=== PATIENT | male | born 1930 | race Caucasian/White ===

== ENCOUNTER 2017-01-28 09:09 | Outpatient (CLI) | payer MEDICARE ==
--- NOTE | 2017-01-28 11:21 | CT ---
BRAIN CT WITHOUT IV CONTRAST: History: Headaches. Back pain. Comparison: Brain MRI 10-17-08. FINDINGS: Stable large area of encephalomalacia, evidence for left middle cerebral artery distribution infarct. No focal mass or midline shift. No intra or extraaxial hemorrhage. 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 Chronic white matter ischemic change, stable appearing. No mass or bleed or other acute process. POS: ELYSE
--- NOTE | 2017-01-28 13:03 | MRI ---
MRI LUMBAR SPINE NONCONTRAST: DATE: 01-28-17 HISTORY: 86-year-old male with M54.16, lumbar radiculopathy, and M54.5 acute low back pain. COMPARISON: No prior MRIs of the lumbar spine. CT of abdomen and pelvis of 03-09-06. FINDINGS: The previous abdominal CT of 03-09-06 showed an approximately 5 cm left renal cyst. That has probably grown in size and now distorts the left renal parenchyma to a greater degree than previously. Only a small portion of it is included in the axial field of view on the current MRI. There are also multipl e, much smaller, bilateral parapelvic renal cysts. That previous abdominal and pelvic CT demonstrates five non-rib bearing lumbar type vertebrae. On the current MRI, the vertebral body heights are maintained. There is a mild right-convex lateral curvatu re of the lumbar spine with apex of curvature at approximately L2. No major spondylolisthesis. There is asymmetrically high grade right sided disc space narrowing along the left, concave side of the cur vature at L1-2 and L2-3, and along the right, concave side of the counter curvature at L4-5 and L5-S1 , which contributes to the right sided neural foraminal stenosis at those lower levels. There are Mod ic type I degenerative endplate marrow changes with small endplate defects, at L2-3. No other areas o f significant bone marrow signal abnormality. The findings by individual levels are as follows: T11-12: Focal small left lateral disc herniation. This has the potential to impinge on the left exiti ng T11 nerve root. There is mild left neural foraminal stenosis. No right neural foraminal stenosis. The degree of central spinal canal stenosis is mild. The disc herniation does not contact the spinal cord. T12-L1: Shallow, broad based right paracentral disc protrusion. No significant central stenosis or si gnificant neural foraminal stenosis. L1-2: The conus medullaris terminates at this level. Diffuse disc bulge. Mild ligamentum flavum thick ening. Mild degenerative facet changes. Mild to moderate central spinal canal stenosis. Moderate thec al sac stenosis. Mild to moderate bilateral neural foraminal stenosis. L2-3: Diffuse disc bulge. Mild bilateral neural foraminal stenosis. Distortion of the spinal canal an d thecal sac by the lateral curvature and disc bulge. Mild ligamentum flavum thickening. Moderate spi nal canal and thecal sac stenosis, especially on the left side. Significant left lateral recess steno sis. L3-4: Midline laminectomy defect. No central stenosis. Moderate right neural foraminal stenosis. Anson le or no left neural foraminal stenosis. Asymmetrical right moderate degenerative facet changes. L4-5: Midline laminectomy defect. No central spinal canal stenosis. Bilateral moderate degenerative f acet changes bilaterally, right worse than left. Severe right neural foraminal stenosis with displace ment and deformation of exiting right L4 nerve root, and obliteration of neural foraminal fat signal. Mild to moderate left neural foraminal stenosis. L5-S1: Midline laminectomy defect. No central stenosis. Moderate bilateral neural foraminal stenosis, right worse than left. IMPRESSION: 1. Lumbar spondylosis: multilevel degenerative disc disease, facet osteoarthrosis, and lateral curvat ure. 2. Status post laminectomies from L3-4 through L5-S1. 3. Severe right neural foraminal stenosis at L4-5. 4. Moderate central spinal canal stenosis and severe left lateral recess stenosis, at L2-3. 5. Interval growth of now large left renal cyst, distorting the left renal parenchyma. PRINCESS Henley POS: ELYSE
== END 2017-01-28 09:10 | disposition home or self-care (01) ==
LOC: CT 09:09
PROVIDERS: ATTEND Neurological Surgery
DX: M54.16 Radiculopathy, lumbar region (principal); M54.5 Low back pain; R51 Headache; G93.89 Other specified disorders of brain; M47.816 Spondylosis without myelopathy or radiculopathy, lumbar region; M48.061 Spinal stenosis, lumbar region without neurogenic claudication; N28.1 Cyst of kidney, acquired; Z98.890 Other specified postprocedural states
CPT/HCPCS: 70450; 72148

== ENCOUNTER 2017-06-30 15:22 | Inpatient (IN) | payer MEDICARE ==
[2017-06-30 16:06] LABS: #Lymphocytes 1.3 thou/uL (1.20-3.40); #Monocytes 0.5 thou/uL (0.11-0.59); #Neutrophils 5.4 thou/uL (1.40-6.50); %Basophils 0.4 % (0.0-1.0); %Eosinophils 0.6 % (0.0-10.0); %Lymphocytes 17.6 % (21.0-51.0); %Neutrophils 74.4 % (42.0-75.0); Hemoglobin 10.4 g/dL (14.0-18.0); Mean Corpuscular HGB CONC 32.6 g/dL (32.0-36.0); Mean Corpuscular Hemoglobin 31.8 pg (27.0-31.0); Mean Corpuscular Volume 97.5 fl (80.0-94.0); Mean Platelet Volume 8.5 fL (7.4-10.4); Platelet Count 254 thou/uL (130-400); RBC Distribution Width 15.9 % (11.5-14.5); Red Blood Cell (RBC) Count 3.27 mill/uL (4.70-6.10); White Blood Cell (WBC) Count 7.3 thou/uL (4.8-10.8)
[2017-06-30 16:08] LABS: INR-International Normal Ratio 1.3; Prothrombin Time 16.7 SEC (12.0-14.7)
--- NOTE | 2017-06-30 16:25 | PDOC.FPRHP ---
- History of Present Illness Chief Complaint: jaundice History of Present Illness: John Miller is an 86 year old male with a pmh of HTN, HLD, BPH, stroke, who presents as direct admit from Dr. Royal's office. Patient was with his for an appointment for her at Dr. Holden's office yesterday and she noticed how yellow his skin was. Dr. Holden ordered a CBC, CMP, Direct/Total bili. Patient was seen in Dr. Royal's office and his labs were remarkable for Total bili of 25.6, direct bili of 10.9, AST of 278, ALT 140, Alk Phos of 1623, Cr of 3.03. 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 He is normally A&O X4. His daughter, who is a nurse, states that he seems to be slightly below his baseline. She has noticed that his skin has looked slightly more yellow for about the last two weeks, but it has not been this obvious as it is now, which she attributes to the lighting in the house. He denies any complaints or pain. He and his daughter agree that he has had decreased PO intake and decreased appetite for several months. He also has had weight loss during that time. He denies abdominal pain/n/v any time during or after eating. No history of cholecystectomy. Patient denies any recent illnesses. ED Course: Direct admit from Dr. Royal's office - Allergies/Adverse Reactions Allergies Allergy/AdvReac Type Severity Reaction Status Date / Time codeine Allergy Verified 06/30/17 16:47 NSAIDS (Non-Steroidal Allergy Verified 06/30/17 16:47 Anti-Inflamma Penicillins Allergy Verified 06/30/17 16:47 Sulfa (Sulfonamide Allergy Verified 06/30/17 16:47 Antibiotics) - Home Medications Medication Instructions Recorded Confirmed Type Amlodipine Besylate [amLODIPine 2.5 mg PO DAILY 06/30/17 06/30/17 History Besylate] Aspirin [Jesusita Chewable] 81 mg PO DAILY 06/30/17 06/30/17 History Atorvastatin Calcium [Lipitor] 20 mg PO HS 06/30/17 06/30/17 History Ergocalciferol (Vitamin D2) 50,000 unit PO Q7DAYS 06/30/17 06/30/17 History [Vitamin D2] Folic Acid [Folvite] 1 mg PO DAILY 06/30/17 06/30/17 History HYDROcodone/Acetaminophen [Morrow 1 each PO QID PRN 06/30/17 06/30/17 History 7.5-325 Tablet] Lisinopril 2.5 mg PO DAILY 06/30/17 06/30/17 History Loratadine [Claritin] 10 mg PO DAILY 06/30/17 06/30/17 History Nitroglycerin [Nitrostat] 0.4 mg SL Q5MIN PRN 06/30/17 06/30/17 History Pantoprazole [Protonix] 40 mg PO DAILY 06/30/17 06/30/17 History Polyethylene Glycol 3350 [Miralax] 17 gm PO DAILY 06/30/17 06/30/17 History Tamsulosin HCl [Flomax] 0.4 mg PO HS 06/30/17 06/30/17 History Topiramate 100 mg PO BID 06/30/17 06/30/17 History - History PMHx: HTN, HLD, CKD stage 3, BPH, hx of stroke, chronic back pain PSHx: Carotid Endarterectomy after stroke, Back surgery FHx: noncontributory Social: Lives with at home. No history of drug use, alcohol use, iv drug use, smoking. Worked in [employer] for many years, [employer] for short time when he was young. Denies blood transfusions in past. - Review of Systems General: reports: weight/appetite/sleep changes. denies: fever/chills, night sweats, fatigue Eyes: denies: eye pain, vision changes ENT: denies: nasal congestion, rhinorrhea Respiratory: denies: cough, congestion, shortness of breath, exercise intolerance Cardiovascular: denies: chest pain, palpitation, edema, paroxysmal nocturnal dyspnea, orthopnea Gastrointestinal: reports: constipation. denies: nausea, vomiting, diarrhea, abdominal pain, GI bleeding Genitourinary: denies: incontinence, dysuria, polyuria, discharge Skin: denies: rashes, lesions, jaundice, itching Musculoskeletal: reports: pain, arthritis/arthralgias. denies: tenderness, stiffness, swelling Neurological: denies: numbness, syncope, seizure, weakness Psychological: denies: anxiety, depression - Vital signs BP: 128/61 HR: 61 RR: 18 Tmax: 97.6 Pox: 100% on RA - Physical Exam Constitutional: NAD, awake, alert and oriented, well developed HEENT: normocephalic and atraumatic, PERRLA, EOMI, grossly normal vision, TM's clear and intact, grossly normal hearing, normal nasal mucosa, MMM -HEENT: scleral icterus, yellow mucous membranes, A&OX3 Neck: supple, FROM, trachea midline, no LAD, no JVD Chest: no-tender to palpation, no lesions Heart: RRR, normal S1/S2, no murmurs/rubs/gallops, pulses present Lungs: CTAB, no respiratory distress, good air movement, no rales/rhonchi Abdomen: soft, non-tender, bowel sounds present, no masses/distention Musculoskeletal: normal structure, normal tone, ROM grossly normal Neurological: no focal deficit, CN II-XII intact, normal sensation Skin: no rash/lesions, good turgor, capillary refill <2 seconds -Skin: diffuse jaundice over whole body Heme/Lymphatic: no unusual bruising or bleeding, no purpura -Heme/Lymphatic: small hemangiomas on chest Psychiatric: normal mood and affect, good judgment and insight, intact recent and remote memory FMR H&P: Results - Labs Result Diagrams: 06/30/17 15:54 06/30/17 15:54 Lab results: WBC 7.3 thou/uL (4.8-10.8) 06/30/17 15:54 Hgb 10.4 g/dL (14.0-18.0) L 06/30/17 15:54 Hct 31.9 % (42.0-52.0) L 06/30/17 15:54 MCV 97.5 fl (80.0-94.0) H 06/30/17 15:54 Plt Count 254 thou/uL (130-400) 06/30/17 15:54 Neutrophils % 74.4 % (42.0-75.0) 06/30/17 15:54 FMR H&P: A/P - Problem List (1) Acute hepatic failure Current Visit: Yes Status: Acute (2) Hepatic encephalopathy Current Visit: Yes Status: Acute Code(s): K72.90 - HEPATIC FAILURE, UNSPECIFIED WITHOUT COMA (3) Hyperbilirubinemia Current Visit: Yes Status: Acute Code(s): E80.6 - OTHER DISORDERS OF BILIRUBIN METABOLISM (4) Acute kidney injury superimposed on CKD Current Visit: Yes Status: Acute Code(s): N17.9 - ACUTE KIDNEY FAILURE, UNSPECIFIED; N18.9 - CHRONIC KIDNEY DISEASE, UNSPECIFIED (5) HTN (hypertension) Current Visit: Yes Status: Acute Code(s): I10 - ESSENTIAL (PRIMARY) HYPERTENSION (6) HLD (hyperlipidemia) Current Visit: Yes Status: Acute Code(s): E78.5 - HYPERLIPIDEMIA, UNSPECIFIED (7) Normocytic anemia Current Visit: Yes Status: Acute Code(s): D64.9 - ANEMIA, UNSPECIFIED (8) BPH (benign prostatic hyperplasia) Current Visit: Yes Status: Acute Code(s): N40.0 - BENIGN PROSTATIC HYPERPLASIA WITHOUT LOWER URINRY TRACT SYMP - Plan (1) Acute Hepatic Failure: - Likely hepatobiliary in etiology - No complaints, hx significant for decreased appetite and weight loss - No hx of liver disease, alcohol or iv drug use, or transfusions - No recent illnesses - MELD score of 33 - Ammonia was >925 - Ordered RUQ US - Starting lactulose (2) Hepatic Encephalopathy - Pt in not at his baseline mental status per daughter - A&O X3 currently - Difficult to distinguish from residual memory and speech impairments from previous stroke - Ammonia is greater than 925 - Starting lactulose - continue to monitor closely overnight (3) Hyperbilirubinemia: - Alk phos is 1623, Total bili 25.6, direct of 10.3 - Ordered RUQ US (4) NATHAN on CKD stage 3: - IVFs, NS at 130 ml/hr - possibly 2/2 hypovolemia - Check CMP in AM (5) HTN - Continue to monitor - Start home meds (6) HLD - Home meds (7) BPH - Home meds CODE STATUS: DNR Patient's decision with daughter present in the room, supported decision. Disposition/LOS: Admit to Tele, anticipated stay > 48 hours FMR H&P: Upper Level - Pertinent history 86 yr old male with PMH hx of HTN, HLD and hx of CVA is sent over by PCP for direct admission secondary to abnormal lab elevation after a finding of jaundice. He has no complaints. Daughter first noticed the yellow appearance 2 weeks ago. Denies abdominal pain, nausea, vomiting. He has had some constipation. Reports weight loss over last few years and loss of appetite recently. He denies hx of alcohol use. No drug use. No hx of hepatitis. - Pertinent findings PE: Gen: NAD, outside of jaundice he is normal in appearance. ENT: scleral icteris cardiac: RRR, NO m/r/g lungs: CTAB Abdomen: hypoactive BS, nontender to palpation, no masses palpated, no hepatosplenomegaly Skin: severe jaundice, no caput medusa, no spider angioma EXT: 1+ dorsalis pedis - Plan Date/Time: 06/30/17 2147 I, [Kendal Limon], have evaluated this patient and agree with findings/plan as outlined by financial internship resident. Pertinent changes/additions are listed here. 1. Hyperbilirubinemia -etiology unknown however certainly consider obstructive type process including malignancy -will obtain Abdominal sono -trend CMP, amonia -consult GI in AM 2. acute liver failure - see above 3. hepatic encephalopathy -will start lactulose and titrate to BM of 3 x daily 4. acute on chronic CKD - will give fluids and cont to monitor BMP 5. HTN - cont home meds 6. HLD -holding statin at this time 7. normocytic anemia - check ferritin, iron, tibc - check B12, folic acid 8. BPH - start home meds DVT ppx with heparin regular diet and NPO after midnight.
[2017-06-30 16:31] LABS: Bilirubin, Total 25.6 mg/dL (0.2-1.2)
[2017-06-30 16:33] LABS: ALT (SGPT) 128 U/L (8-55); AST (SGOT) 247 U/L (5-34); Albumin 2.9 g/dL (3.4-4.8); Alkaline Phosphatase 1549 U/L (40-150); Anion Gap 16 mmol/L (10-20); BUN (Urea Nitrogen) 41 mg/dL (8.4-25.7); Calc. Creatinine Clearance 0 mL/min (70-130); Calcium 9.5 mg/dL (7.8-10.44); Carbon Dioxide 17 mmol/L (23-31); Chloride 105 mmol/L (98-107); Estimated GFR-MDRD 19; Gamma GT (GGT) 536 U/L (12-64); Globulin 3.8 g/dL (2.4-3.5); Glucose 116 mg/dL (83-110); Potassium 3.9 mmol/L (3.5-5.1); Protein, Total 6.7 g/dL (5.8-8.1); Sodium 134 mmol/L (136-145)
[2017-06-30 16:46] LABS: HBCM Index 0.08 S/CO (0-0.79); HBSAg Index 0.22 S/CO (0-0.99); Hep A IgM AB Non-Reactive (NonReactive); Hep A IgM S/CO 0.09 S/CO (0-0.79); Hep B Surf Ag Non-Reactive S/CO (NonReactive); Hep C IgG Ab Non-Reactive (NonReactive); Hep C Index 0.09 S/CO (0-0.79); Hepatitis B Core IGM Abs Non-Reactive (NonReactive)
--- NOTE | 2017-06-30 17:27 | PDOC.EVN ---
Attending Addendum - Attending Addendum Date/Time: 06/30/17 0366 I personally evaluated the patient and discussed the management with Dr. Hernández/ Ashly. I agree with the History, Examination, Assessment and Plan documented in the H& P with any addition or exceptions noted below. Patient is 86 yo M with remote history of CVA with residual memory deficits who presents today as direct admit from his PCP. Per family and PCP, patient was noted to be extremely jaundiced yesterday at one of his 's appointments, and so labs were checked and he was scheduled for follow up today in clinic. Labs revealed a Tbili of greater than 25, AST/ALT elevations, and highly elevated alk phos. Per the patient, he overall denies any complaints other than mildly decreased appetite over the last few weeks. His daughter reports to me that she noticed him looking somewhat "yellow" about 2 weeks ago. On exam today , he is extensively jaundiced, RRR, CTAB, and abdomen nontender. He does have scattered bruising. Labs today show continued elevation of Alk Phos, AST, ALT, TBili. His ammonia level is greater than the limits of the test (925). Albumin 2.9, INR 1.3. His Creatinine is 3.2, and his PCP reports baseline of around 2. Imaging studies are pending. MELD score currently 33. Patient to be admitted to telemetry for 1. Acute versus Chronic Liver failure likely 2/2 biliary obstruction of unknown etiology. 2. Hepatic encephalopathy. 3. NATHAN on CKD. 4. History of CVA. Primary concern given the patient's current lab studies would be malignancy/mass causing biliary obstruction leading to liver dysfunction. His creatinine would not qualify for a contrast enhanced CT scan, so we will obtain a STAT RUQ U/S to evaluate liver architecture, bile duct , portal vein flow, and hopefully pancreatic head. If this testing is negative or equivocal, would obtain non contrast CT overnight. He will be started on fluid hydration as well as Lactulose therapy to try and make a dent in his encephalopathy, though this effect is likely to be minor. Will need GI consult, though there does not appear to be a reason currently for emergent consultation. Further management and specialist consults depending on resulting labs and imaging studies overnight. Patient is a DNR.
[2017-06-30] MEDS ORDERED: Nitroglycerin 0.4 MG TAB (25 Tab Bottle) SL PRN (17:33)
[2017-06-30] MEDS: Sodium Chloride 0.9% 1,000 ML IV SCH (17:45)
[2017-06-30 18:05] LABS: Acetaminophen Less than 6.0 mcg/mL (10.0-30.0)
[2017-06-30] MEDS: Tamsulosin HCl 0.4 MG CAP PO SCH (20:25)
[2017-07-01 05:23] LABS: #Eosinphils 0.1 thou/uL (0.0-0.7); #Lymphocytes 1.2 thou/uL (1.20-3.40); #Monocytes 0.5 thou/uL (0.11-0.59); #Neutrophils 3.6 thou/uL (1.40-6.50); %Basophils 0.5 % (0.0-1.0); %Eosinophils 1.4 % (0.0-10.0); %Lymphocytes 21.7 % (21.0-51.0); %Monocytes 8.8 % (0.0-10.0); %Neutrophils 67.6 % (42.0-75.0); Hemoglobin 8.9 g/dL (14.0-18.0); Mean Corpuscular HGB CONC 33.1 g/dL (32.0-36.0); Mean Corpuscular Hemoglobin 32.6 pg (27.0-31.0); Mean Corpuscular Volume 98.2 fl (80.0-94.0); Mean Platelet Volume 8.4 fL (7.4-10.4); Platelet Count 231 thou/uL (130-400); RBC Distribution Width 15.7 % (11.5-14.5); Red Blood Cell (RBC) Count 2.73 mill/uL (4.70-6.10); White Blood Cell (WBC) Count 5.3 thou/uL (4.8-10.8)
[2017-07-01 05:50] LABS: ALT (SGPT) 103 U/L (8-55); AST (SGOT) 207 U/L (5-34); Albumin 2.4 g/dL (3.4-4.8); Alkaline Phosphatase 1304 U/L (40-150); Anion Gap 13 mmol/L (10-20); BUN (Urea Nitrogen) 37 mg/dL (8.4-25.7); Bilirubin, Total 20.8 mg/dL (0.2-1.2); Calc. Creatinine Clearance 23 mL/min (70-130); Calcium 8.4 mg/dL (7.8-10.44); Carbon Dioxide 17 mmol/L (23-31); Chloride 107 mmol/L (98-107); Estimated GFR-MDRD 23; Glucose 105 mg/dL (83-110); Potassium 3.8 mmol/L (3.5-5.1); Protein, Total 5.4 g/dL (5.8-8.1); Sodium 133 mmol/L (136-145)
[2017-07-01] MEDS: Sodium Chloride 0.9% 1,000 ML IV SCH ×3 (06:51→17:33)
--- NOTE | 2017-07-01 06:56 | PDOC.FM ---
- Subjective Subjective: Mr. Miller seen at bedside this morning. He denies any problems. There were no acute events overnight. He was not able to get his RUQ US done last night because he had eaten. Radiology recommended getting CT scan. CT scan done around midnight. Enlarged gallbladder, renal stone present. Official read pending. Patient denies any fever, chills, chest pain, dyspnea. - Objective MAR Reviewed: Yes Vital Signs & Weight: Vital Signs (12 hours) Temp Pulse Resp BP Pulse Ox 07/01/17 06:06 98.2 F 63 16 129/66 98 07/01/17 03:21 97.6 F 72 18 154/73 H 100 06/30/17 20:00 98.2 F 82 18 100 06/30/17 19:21 98.2 F 82 18 139/63 100 Weight Weight 76.374 kg I&O: 06/29/17 06/30/17 07/01/17 06:59 06:59 06:59 Intake Total 902 Output Total 400 Balance 502 Result Diagrams: 07/01/17 04:03 07/01/17 04:03 <Axel Hernández - Last Filed: 07/01/17 06:50> - Objective Vital Signs & Weight: Vital Signs (12 hours) Temp Pulse Resp BP Pulse Ox 07/01/17 08:00 97.9 F 57 L 16 100 07/01/17 07:48 97.9 F 57 L 16 118/59 L 100 07/01/17 06:06 98.2 F 63 16 129/66 98 07/01/17 03:21 97.6 F 72 18 154/73 H 100 Weight Admit Weight 73.346 kg Weight 76.374 kg I&O: 06/30/17 07/01/17 07/02/17 06:59 06:59 06:59 Intake Total 902 Output Total 400 Balance 502 Result Diagrams: 07/01/17 04:03 07/01/17 04:03 <Byron Ho - Last Filed: 07/01/17 11:10> Phys Exam - Physical Examination Constitutional: NAD HEENT: PERRLA, moist MMs icteric sclera Neck: no JVD, full ROM Respiratory: no wheezing, no rales, no rhonchi, clear to auscultation bilateral Cardiovascular: RRR, no significant murmur Gastrointestinal: soft, non-tender, no distention Musculoskeletal: no edema, pulses present Neurological: non-focal, normal sensation, moves all 4 limbs Psychiatric: normal affect, A&O x 3 Deviation from normal: diffuse jaundice <EdgarAxel - Last Filed: 07/01/17 06:50> Dx/Plan (1) Acute hepatic failure Status: Acute (2) Hepatic encephalopathy Code(s): K72.90 - HEPATIC FAILURE, UNSPECIFIED WITHOUT COMA Status: Acute (3) Hyperbilirubinemia Code(s): E80.6 - OTHER DISORDERS OF BILIRUBIN METABOLISM Status: Acute (4) Acute kidney injury superimposed on CKD Code(s): N17.9 - ACUTE KIDNEY FAILURE, UNSPECIFIED; N18.9 - CHRONIC KIDNEY DISEASE, UNSPECIFIED Status: Acute (5) HTN (hypertension) Code(s): I10 - ESSENTIAL (PRIMARY) HYPERTENSION Status: Acute (6) HLD (hyperlipidemia) Code(s): E78.5 - HYPERLIPIDEMIA, UNSPECIFIED Status: Acute (7) Normocytic anemia Code(s): D64.9 - ANEMIA, UNSPECIFIED Status: Acute (8) BPH (benign prostatic hyperplasia) Code(s): N40.0 - BENIGN PROSTATIC HYPERPLASIA WITHOUT LOWER URINRY TRACT SYMP Status: Acute - Plan Plan: (1) Acute Hepatic Failure: - Likely hepatobiliary in etiology - No complaints, hx significant for decreased appetite and weight loss - No hx of liver disease, alcohol or iv drug use, or transfusions - No recent illnesses - MELD score of 33 on admission, MELD now 30, giving him a 52.6% 3 month mortality risk - Ammonia was >925 - RUQ US not performed yesterday due to patient having eaten - Radiology recommended CT abd, which was performed around midnight, official read pending - CT read will determine further plan - Discontinued lactulose (2) Hepatic Encephalopathy - Pt in not at his baseline mental status per daughter - A&O X3 currently - Difficult to distinguish from residual memory and speech impairments from previous stroke - Lab error on initial ammonia level (>925), ammonia is actually 28 - Lactulose discontinued - continue to monitor closely overnight (3) Hyperbilirubinemia: - Initial labs: Alk phos is 1623, Total bili 25.6, direct of 10.3 - CT abdomen - labs are downtrending (4) NATHAN on CKD stage 3: - IVFs, NS at 130 ml/hr - possibly 2/2 hypovolemia - NATHAN is resolving (5) HTN - Continue to monitor - Start home meds (6) HLD - Home meds (7) BPH - Home meds <Axel Hernández - Last Filed: 07/01/17 06:50> Attending Addendum - Attending Addendum Date/Time: 07/01/17 4688 I personally evaluated the patient and discussed the management with Dr. Hernández. I agree with the History, Examination, Assessment and Plan documented above with any addition or exceptions noted below. Patient continues to be at relatively normal mentation despite his liver dysfunction. U/S not yet performed, but CT without contrast (due to kidney injury) shows dilated bile ducts, enlarged gallbladder, and large renal cyst, but no major evidence of obstruction. His labs are mildly improved today with IV hydration. GI has been consulted and awaiting further recs. Will compare renal cyst size to what is documented in his last imaging study from a few years ago and likely consult Urology to r/o malignancy. Patient will still need several more days of hospitalization to work up with obstructive process leading to liver dysfunction. <Byron Ho - Last Filed: 07/01/17 11:10>
[2017-07-01 08:59] LABS: Free T4 (Free Thyroxine) 1.03 ng/dL (0.70-1.48)
--- NOTE | 2017-07-01 09:21 | CT ---
PRELIMINARY REPORT/[facility]/EMERGENTY AFTER-HOURS PROCEDURE EXAM: CT Abdomen and Pelvis Without Intravenous Contrast CLINICAL HISTORY: 86 years old, male; Condition or disease; Liver condition; Other: Acute liver failure; Patient HX: Ac winsome liver failure, hyperbilirubin, wt loss TECHNIQUE: Axial computed tomography images of the abdomen and pelvis without intravenous contrast. Coronal refo rmatted images were created and reviewed. COMPARISON: No relevant prior studies available. FINDINGS: Lung bases: Normal. No mass. No consolidation. Mediastinum: Small-sized hiatal hernia. ABDOMEN: Liver: Normal. Gallbladder and bile ducts: Enlarged gallbladder, with calcified gallstones in the region of the gall bladder neck. No gallbladder wall thickening. Moderate intra-and extrahepatic biliary dilation. No ev idence of choledocholithiasis. Pancreas: Normal. Spleen: Normal. Adrenals: Normal. Kidneys and ureters: Simple left renal cyst measuring approximately 6.7 cm in diameter. Stomach and bowel: Moderate amount of stool within the distal sigmoid colon, without obstruction. PELVIS: Appendix: Appendix is normal. Bladder: Normal. Reproductive: Normal as visualized. ABDOMEN and PELVIS: Intraperitoneal space: Normal. No free air. No significant fluid collection. Bones/joints: Multilevel thoracolumbar spine degenerative changes, with dextroscoliosis of the lumbar spine. L4 and L5 posterior decompressive changes. No dislocation. Soft tissues: Normal. Vasculature: Atherosclerotic calcification of the visualized right coronary artery and distal thoraci c aorta. No abdominal aortic aneurysm. Lymph nodes: Normal. IMPRESSION: 1. Enlarged gallbladder, with calcified gallstones in the region of the gallbladder neck. No gallblad ko wall thickening. Moderate intra-and extrahepatic biliary dilation. No evidence of choledocholithi asis. Findings most compatible with acute cholecystitis. Biliary dilation may be related to previous choled ocholithiasis or possibly occult obstruction. Recommend further evaluation. 2. Incidental/non-acute findings are described above. Thank you for allowing us to participate in the care of your patient. Dictated and Authenticated by: Reji Young MD 07/01/2017 1:10 AM Central Time ([place] & [place]) FINAL REPORT EMERGENCY AFTER HOURS CT ABDOMEN AND PELVIS WITHOUT IV CONTRAST: Date: 07/01/17 HISTORY: Acute liver failure, hyperbilirubinemia, weight loss. COMPARISON: 03/09/06. IMPRESSION: 1. Intra and extrahepatic biliary ductal dilatation of uncertain etiology based on this noncontraste d CT scan exam. 2. Gallbladder distention with evidence of cholelithiasis. 3. Large exophytic left renal cyst. 4. Nonobstructing approximately 3.0 mm left renal calculus. 5. Small hiatal hernia. 6. No CT evidence of appendicitis. 7. Degenerative changes in the spine with postsurgical changes lower lumbar spine. 8. GI consultation for further evaluation of the intra and extrahepatic biliary dilatation is recomm ended. Depending on clinical concern, postcontrast CT scan of the abdomen may be helpful for further evaluation. Findings are in agreement with the preliminary report by Karla. POS: ELYSE
[2017-07-01 11:44] LABS: INR-International Normal Ratio 1.3; PTT 41.6 SEC (22.9-36.1); Prothrombin Time 16.9 SEC (12.0-14.7)
--- NOTE | 2017-07-01 12:48 | ULT ---
RIGHT UPPER QUADRANT ULTRASOUND: History: Enlarged gallbladder with dilated ducts. Jaundice. Technique: Multiplanar grayscale and color doppler images were obtained in a right upper quadrant abd ominal ultrasound. FINDINGS: The liver is increased in echogenicity without focal lesions. There appear to be small echogenic shad owing stones within the gallbladder. The common bile duct is enlarged measuring 1.4 cm. There is appa rent gallbladder wall thickening. The pancreas is not well visualized. The right kidney is normal in echogenicity without hydronephrosi s or calculus and measures 10.3 cm in length. IMPRESSION: 1. Cholelithiasis. 2. Dilated common bile duct. No obvious calcification is seen in the common bile duct. MRCP/MRI of th e abdomen is recommended for more definitive evaluation. POS: ELYSE
[2017-07-01] MEDS ORDERED: Fentanyl 100 MCG/2 ML VIAL ONE ×2 (13:15)
[2017-07-01] MEDS ORDERED: Iothalamate Meglumine 60% 50 ML VIAL FS ONE (13:26)
[2017-07-01] MEDS ORDERED: Indomethacin 50 MG SUPP ONE ×2 (13:27→13:28)
[2017-07-01] MEDS ORDERED: PHENYLEPHRINE-NS 100 MCG/ML 10 ML SYRINGE ONE (14:37)
[2017-07-01] MEDS ORDERED: Glycopyrrolate 0.2 MG/ML 5 ML SYRINGE ONE (14:37)
[2017-07-01] MEDS ORDERED: Ondansetron HCl/PF 4 MG/2 ML Vial ONE ×2 (14:37→14:41)
[2017-07-01] MEDS ORDERED: ePHEDrine/0.9% NaCl/PF SYRINGE 50 mg/10 ml ONE (14:37)
[2017-07-01] MEDS ORDERED: Lidocaine 1% PF 5 ML VIAL ONE (14:37)
[2017-07-01] MEDS ORDERED: PROPOFOL 200 MG/20 ML VIAL ONE (14:37)
[2017-07-01] MEDS ORDERED: Dexamethasone 20 MG/5 ML VIAL ONE (14:37)
[2017-07-01] MEDS: Amlodipine 5 MG TAB PO SCH (14:38)
[2017-07-01] MEDS: Loratadine 10 MG TAB PO SCH (14:39)
--- NOTE | 2017-07-01 16:46 | RAD ---
ERCP 07/01/17 COMPARISON: Gallbladder ultrasound 07/01/17. HISTORY: Cholelithiasis. FINDINGS/IMPRESSION: Multiple limited intraoperative fluoroscopic views were performed and were taken in an ERCP. The limi david fluoroscopic images provided show severe enlargement of the common bile duct. There is contrast s een within the pancreatic duct which is normal in caliber. There is mild central intrahepatic biliary dilatation. The contrast does not extend into the duodenum and there is an abrupt tapering of the co mmon bile duct in the region of the ampulla Vater. A small amount of contrast is seen extending towar ds the duodenum. The latter images show a stent placed over this area which could represent an of str icture or could represent a mass in the region of the ampulla Vater. POS: ELYSE
[2017-07-01 17:08] LABS: EliA Vaculitis New Method **** NEW METHOD ****; Mitochondrial Ab 0.8 U/mL (<4 Negative)
--- NOTE | 2017-07-01 17:22 | OP ---
DATE OF PROCEDURE: 07/01/2017 PROCEDURE: Endoscopic retrograde cholangiopancreatography with sphincterotomy, cytology brushing, and biliary stent placement. PHYSICIAN: Kishan Silva M.D. PREMEDICATIONS: Given by Anesthesiology Department. PREPROCEDURE DIAGNOSIS: Obstructive jaundice. POSTPROCEDURE DIAGNOSES: 1. 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 3. Dilated common bile duct to 1.5 cm. 4. Mildly dilated intrahepatic biliary tree. 5. No obvious choledocholithiasis. PROCEDURE IN DETAIL: A written consent was obtained prior to procedure. After adequate sedation, the forward-viewing endoscope was advanced down the stomach to the pylorus into the duodenum. The ampulla was visualized. There is 2 periampullary diverticula noted. The ampulla appears to be very bulging, measuring approximately 2 cm in width. Selective cannulation was performed using a sphincterotome. Injection of contrast showed a normal-appearing pancreatic duct. Despite multiple attempts, free cannulation of the common bile duct was not achieved. A small precut was made at the 12 o'clock position. The sphincterotome was then able to pass into the bile duct with a guidewire. Injection of the bile duct showed a uniformly dilated bile duct, measuring approximately 15 mm in diameter. No obvious filling defect was seen. There appears to be a mild dilatation of the intrahepatic biliary tree. Contrast was opacified to the distal portion of the bile duct, revealing a 1 cm tight stricture through the ampulla. The ampulla was further cut using the sphincterotome. Exchange was made for the cytology brush. The ampullary stricture was then brushed with cytology slide fixated and sent off. Next, a 5 cm, 11.5-Syriac biliary stent was then placed across the guide apparatus successfully by passing the biliary stricture. There was evacuation of contrast and bile from the bile duct. Injection of contrast was made through the stent to ensure proper placement. There is good opacification revealing good biliary stent placement. The instrument was then fully removed. The patient tolerated the procedure well. ASSESSMENT: 1. 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 2. Dilated common bile duct to 1.5 cm without any intraductal filling defect or any evidence of choledocholithiasis. RECOMMENDATIONS: 1. Await cytology brushing result. 2. If conclusive, patient may need outpatient endoscopic ultrasound. 3. Check CA 19-9, AFP and CEA. MTDD
[2017-07-01] MEDS ORDERED: Dextrose 5% in Water 1,000 ML IV PRN (18:36)
[2017-07-01] MEDS ORDERED: Dextrose 50% Abboject 50 ML SYRINGE SLOW IVP PRN (18:36)
[2017-07-01] MEDS ORDERED: HumaLOG 300 UNITS/3 ML VIAL SC PRN (18:36)
[2017-07-01] MEDS ORDERED: Pantoprazole 40 MG VIAL IVP SCH (21:00)
[2017-07-01] MEDS: Tamsulosin HCl 0.4 MG CAP PO SCH (21:22)
[2017-07-02] MEDS: Sodium Chloride 0.9% 1,000 ML IV SCH ×3 (00:22→16:26)
[2017-07-02 04:57] LABS: INR-International Normal Ratio 1.4; Prothrombin Time 17.2 SEC (12.0-14.7)
[2017-07-02 04:58] LABS: PTT 39.4 SEC (22.9-36.1)
[2017-07-02 05:25] LABS: ALT (SGPT) 93 U/L (8-55); AST (SGOT) 163 U/L (5-34); Albumin 2.1 g/dL (3.4-4.8); Alkaline Phosphatase 1155 U/L (40-150); Anion Gap 11 mmol/L (10-20); BUN (Urea Nitrogen) 34 mg/dL (8.4-25.7); Bilirubin, Total 17.8 mg/dL (0.2-1.2); Calc. Creatinine Clearance 24 mL/min (70-130); Calcium 8.3 mg/dL (7.8-10.44); Carbon Dioxide 16 mmol/L (23-31); Chloride 109 mmol/L (98-107); Estimated GFR-MDRD 25; Globulin 2.9 g/dL (2.4-3.5); Glucose 127 mg/dL (83-110); Potassium 4.1 mmol/L (3.5-5.1); Sodium 132 mmol/L (136-145)
[2017-07-02 05:30] LABS: #Lymphocytes 0.7 thou/uL (1.20-3.40); #Monocytes 0.3 thou/uL (0.11-0.59); #Neutrophils 3.8 thou/uL (1.40-6.50); %Eosinophils 0.4 % (0.0-10.0); %Lymphocytes 14.4 % (21.0-51.0); %Monocytes 6.4 % (0.0-10.0); %Neutrophils 78.8 % (42.0-75.0); Hemoglobin 8.7 g/dL (14.0-18.0); Mean Corpuscular HGB CONC 33.6 g/dL (32.0-36.0); Mean Corpuscular Hemoglobin 33.1 pg (27.0-31.0); Mean Corpuscular Volume 98.4 fl (80.0-94.0); Mean Platelet Volume 8.3 fL (7.4-10.4); Platelet Count 238 thou/uL (130-400); RBC Distribution Width 15.8 % (11.5-14.5); Red Blood Cell (RBC) Count 2.62 mill/uL (4.70-6.10); White Blood Cell (WBC) Count 4.9 thou/uL (4.8-10.8)
--- NOTE | 2017-07-02 06:57 | PDOC.FM ---
- Subjective Subjective: John Miller is seen at bedside this morning. He denies any issues overnight and any post-operative issues. His questions regarding the surgery and what was causing this were answered. He denies any fever, chills, chest pain, dyspnea, n/v/d/abd pain. - Objective MAR Reviewed: Yes Vital Signs & Weight: Vital Signs (12 hours) Temp Pulse Resp BP Pulse Ox 07/02/17 04:25 98.8 F 77 20 154/65 H 97 07/02/17 04:00 97.6 F 65 18 95/58 L 94 L 07/02/17 00:00 97.8 F 48 L 20 126/60 98 07/01/17 20:00 97.6 F 45 L 16 98 Weight Admit Weight 73.346 kg Weight 78.245 kg I&O: 06/30/17 07/01/17 07/02/17 06:59 06:59 06:59 Intake Total 902 Output Total 400 Balance 502 Result Diagrams: 07/02/17 04:28 07/02/17 04:28 <Axel Hernández - Last Filed: 07/02/17 06:52> - Objective Vital Signs & Weight: Vital Signs (12 hours) Temp Pulse Resp BP BP Pulse Ox 07/02/17 08:33 53 L 105/59 L 07/02/17 07:20 96.1 F L 53 L 18 105/59 L 100 07/02/17 04:25 98.8 F 77 20 154/65 H 97 07/02/17 04:00 97.6 F 65 18 95/58 L 94 L 07/02/17 00:00 97.8 F 48 L 20 126/60 98 Weight Admit Weight 73.346 kg Weight 78.245 kg I&O: 07/01/17 07/02/17 07/03/17 06:59 06:59 06:59 Intake Total 902 Output Total 400 Balance 502 Result Diagrams: 07/02/17 04:28 07/02/17 04:28 <Byron Ho - Last Filed: 07/02/17 10:40> Phys Exam - Physical Examination Constitutional: NAD HEENT: moist MMs Neck: no JVD, supple, full ROM Respiratory: no wheezing, no rales, no rhonchi, clear to auscultation bilateral Cardiovascular: RRR, no significant murmur, no rub Gastrointestinal: soft, non-tender, no distention Musculoskeletal: no edema, pulses present Neurological: non-focal, moves all 4 limbs Psychiatric: normal affect, A&O x 3 Skin: no rash, normal turgor <Axel Hernández - Last Filed: 07/02/17 06:52> Dx/Plan (1) Acute hepatic failure Status: Acute (2) Hepatic encephalopathy Code(s): K72.90 - HEPATIC FAILURE, UNSPECIFIED WITHOUT COMA Status: Acute (3) Hyperbilirubinemia Code(s): E80.6 - OTHER DISORDERS OF BILIRUBIN METABOLISM Status: Acute (4) Acute kidney injury superimposed on CKD Code(s): N17.9 - ACUTE KIDNEY FAILURE, UNSPECIFIED; N18.9 - CHRONIC KIDNEY DISEASE, UNSPECIFIED Status: Acute (5) HTN (hypertension) Code(s): I10 - ESSENTIAL (PRIMARY) HYPERTENSION Status: Acute (6) HLD (hyperlipidemia) Code(s): E78.5 - HYPERLIPIDEMIA, UNSPECIFIED Status: Acute (7) Normocytic anemia Code(s): D64.9 - ANEMIA, UNSPECIFIED Status: Acute (8) BPH (benign prostatic hyperplasia) Code(s): N40.0 - BENIGN PROSTATIC HYPERPLASIA WITHOUT LOWER URINRY TRACT SYMP Status: Acute - Plan Plan: (1) Acute Hepatic Failure: - Likely hepatobiliary in etiology - No complaints, hx significant for decreased appetite and weight loss - No hx of liver disease, alcohol or iv drug use, or transfusions - No recent illnesses - MELD score of 33 on admission, down to 30, 3 month mortality of 52.6% - Ammonia on admission was 28 - CT abd showed dilated CBD and dilated hepatic biliary ducts - ERCP performed yesterday with sphincterotomy, cytology brushings, and biliary stent placement - Concern for intra-ampullary neoplasm - pending path (2) Hepatic Encephalopathy - Patient appears to be at his baseline - A&O X3 currently - Difficult to distinguish from residual memory and speech impairments from previous stroke - Lab error on initial ammonia level (>925), ammonia is actually 28 - Lactulose discontinued - continue to monitor (3) Hyperbilirubinemia: - Initial labs: Alk phos is 1623, Total bili 25.6, direct of 10.3 - labs are continuing to downtrend (4) NATHAN on CKD stage 3: - IVFs, NS at 130 ml/hr - possibly 2/2 hypovolemia - NATHAN is resolving (5) HTN - Continue to monitor - Start home meds (6) HLD - Home meds (7) BPH - Home meds <Axel Hernández - Last Filed: 07/02/17 06:52> Attending Addendum - Attending Addendum Date/Time: 07/02/17 1038 I personally evaluated the patient and discussed the management with Dr. Hernández. I agree with the History, Examination, Assessment and Plan documented above with any addition or exceptions noted below. Patient is s/p ERCP with sphincterotomy and stent placement. Liver values and bilirubin somewhat improved today. INR with mild prolonging as opposed to yesterday. Patient denies pain complaints. Awaiting pathology. Continue fluid hydration and diet as tolerated. No overt signs of malignancy but definitely concern from GI. Anticipate further improvement as hospitalization continues. <Byron Ho - Last Filed: 07/02/17 10:40>
[2017-07-02] MEDS: Amlodipine 5 MG TAB PO SCH (08:33)
[2017-07-02] MEDS: Loratadine 10 MG TAB PO SCH (08:33)
--- NOTE | 2017-07-02 08:41 | CON ---
DATE OF CONSULTATION: 07/01/2017 REASON: Jaundice. HISTORY: The patient is an 86-year-old male who was admitted to the hospital overnight to the [facility]. The patient's history is questionable and most of the history is obtained from e and the chart. Reportedly, patient was admitted from outpatient clinic after being noted that be was jaundiced. Reportedly, he has not been eating well for the last month and has lost some weig ht, exact amount is not known. He denies having any nausea, vomiting or any abdominal pain. The [facility] e reports noted some darkening of the urine. There is no reported change in the color of his stools. He denies any pruritus. Patient has not had any previous GI problem. He did have history of colon adenomas removed by Dr. Varghese on his last colonoscopy in 2011. PAST MEDICAL HISTORY: 1. Hypertension. 2. Hyperlipidemia. 3. Benign prostatic hypertrophy. 4. 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 MEDICATIONS AT HOME: Include vitamin D 50,000 units every week, folic acid 1 mg every day, Garfield p.r .n. pain, lisinopril 2.5 mg every day, Claritin 10 mg every day, Nitrostat sublingual p.r.n., Protoni x 40 mg every day, MiraLax 17 grams every day, Flomax 0.4 mg every day, and topiramate 100 mg b.i.d. PAST SURGICAL HISTORY: Includes carotid enterectomy and back surgery. SOCIAL HISTORY: Patient lives with his . He denies any alcohol or tobacco usage. FAMILY HISTORY: Not obtainable. REVIEW OF SYSTEMS: Not obtainable, but reportedly he has had reduced appetite over the last month wi th poor intake and weight loss. PHYSICAL EXAMINATION: VITAL SIGNS: Temperature is 97.9, blood pressure 118/59, and pulse of 57. GENERAL: He is alert and conversant. Does not appear in any distress. HEENT: Shows bilateral icteric sclerae. There is some mild temporal wasting. Oropharynx clear. NECK: Supple, no adenopathy. CARDIOVASCULAR: Shows normal S1, S2, regular rate and rhythm. CHEST: Shows breath sounds, no adventitious sounds. ABDOMEN: Soft, no palpable mass. No palpable hepatosplenomegaly. He has active bowel sounds. EXTREMITIES: Shows no edema. SKIN: Diffuse jaundice. LABORATORY DATA: Electrolytes within range, creatinine 2.62, bilirubin 20.8, AST of 207, ALT of 103, alkaline phosphatase 1304, TSH of 0.09. Acetaminophen level is not significantly detectable. Virus hepatitis serology negative. INR is 1.3. WBC is 5.3, hemoglobin 8.9, platelet count of 231,000 wit h MCV of 98. IMAGING DATA: Abdominal pelvic CT with contrast showed intrahepatic and extrahepatic biliary dilatat ion with distended gallbladder without wall thickening and calcified gallstone. Pancreas appeared no rmal. Spleen, adrenal glands, normal kidney with an exophytic cysts on the left. ASSESSMENT: 1. Painless obstructive jaundice with bilirubin over 20. CT scan showed dilatation of both intrahep atic and extrahepatic bile duct. Differential diagnoses include choledocholithiasis, cholangiocarcin lizette, and pancreatic neoplasm despite pancreas appears to be normal on CT. 2. Hypertension. 3. Hyperlipidemia. 4. Status post cerebrovascular accident with impaired memory and mild dysarthria. RECOMMENDATIONS: 1. Proceed with ERCP to further define source of biliary obstruction with possible therapeutic inter vention such as stone removal or stent placement. Indication including risks not limited were discus sed with over the phone and again when she comes in later. 2. Further recommendations to follow, pending ERCP findings.
[2017-07-02] MEDS ORDERED: Calcium Carbonate 500 MG ChewTAB PO PRN (20:51)
[2017-07-02] MEDS ORDERED: Calcium Carbonate 500 MG ChewTAB PO SCH (21:00)
[2017-07-02] MEDS: Tamsulosin HCl 0.4 MG CAP PO SCH (21:47)
[2017-07-03] MEDS: Sodium Chloride 0.9% 1,000 ML IV SCH ×3 (00:50→16:58)
[2017-07-03 05:04] LABS: PTT 38.6 SEC (22.9-36.1)
[2017-07-03 05:09] LABS: INR-International Normal Ratio 1.2
[2017-07-03 05:21] LABS: #Eosinphils 0.2 thou/uL (0.0-0.7); #Monocytes 0.5 thou/uL (0.11-0.59); #Neutrophils 6.1 thou/uL (1.40-6.50); %Basophils 0.3 % (0.0-1.0); %Eosinophils 2.1 % (0.0-10.0); %Lymphocytes 13.1 % (21.0-51.0); %Monocytes 6.3 % (0.0-10.0); %Neutrophils 78.2 % (42.0-75.0); Hemoglobin 8.9 g/dL (14.0-18.0); Mean Corpuscular HGB CONC 33.1 g/dL (32.0-36.0); Mean Corpuscular Hemoglobin 32.5 pg (27.0-31.0); Mean Corpuscular Volume 98.2 fl (80.0-94.0); Platelet Count 225 thou/uL (130-400); RBC Distribution Width 15.7 % (11.5-14.5); Red Blood Cell (RBC) Count 2.74 mill/uL (4.70-6.10); White Blood Cell (WBC) Count 7.9 thou/uL (4.8-10.8)
[2017-07-03 05:25] LABS: ALT (SGPT) 76 U/L (8-55); AST (SGOT) 94 U/L (5-34); Albumin 2.1 g/dL (3.4-4.8); Alkaline Phosphatase 986 U/L (40-150); Anion Gap 9 mmol/L (10-20); BUN (Urea Nitrogen) 38 mg/dL (8.4-25.7); Bilirubin, Total 10.1 mg/dL (0.2-1.2); Calc. Creatinine Clearance 28 mL/min (70-130); Calcium 7.9 mg/dL (7.8-10.44); Carbon Dioxide 17 mmol/L (23-31); Chloride 111 mmol/L (98-107); Estimated GFR-MDRD 29; Glucose 117 mg/dL (83-110); Potassium 3.9 mmol/L (3.5-5.1); Protein, Total 5.1 g/dL (5.8-8.1); Sodium 133 mmol/L (136-145)
--- NOTE | 2017-07-03 06:19 | PDOC.FM ---
- Subjective Subjective: John Miller seen at bedside this morning. He had no acute events overnight, just complained of heartburn and requested tums. He feels well this morning. He denies any fever, chills, chest pain, dyspnea, n/v. - Objective MAR Reviewed: Yes Vital Signs & Weight: Vital Signs (12 hours) Temp Pulse Resp BP Pulse Ox 07/03/17 04:00 97.6 F 76 16 164/74 H 98 07/03/17 00:00 97.3 F L 74 16 134/72 98 07/02/17 20:00 97.8 F 77 18 141/71 H 100 Weight Admit Weight 73.346 kg Weight 82.917 kg I&O: 07/01/17 07/02/17 07/03/17 06:59 06:59 06:59 Intake Total 902 Output Total 400 Balance 502 Result Diagrams: 07/03/17 04:24 07/03/17 04:24 <Axel Hernández - Last Filed: 07/03/17 08:20> - Objective Vital Signs & Weight: Vital Signs (12 hours) Temp Pulse Resp BP Pulse Ox 07/03/17 09:13 80 07/03/17 08:00 97.8 F 80 16 98 07/03/17 07:39 97.8 F 80 16 130/78 98 07/03/17 04:00 97.6 F 76 16 164/74 H 98 07/03/17 00:00 97.3 F L 74 16 134/72 98 Weight Admit Weight 73.346 kg Weight 82.917 kg Result Diagrams: 07/03/17 04:24 07/03/17 04:24 <Byron Ho R - Last Filed: 07/03/17 09:52> Phys Exam - Physical Examination Constitutional: NAD HEENT: moist MMs sclera icteric but less than yesterday Neck: no JVD, supple, full ROM Respiratory: no wheezing, no rales, no rhonchi, clear to auscultation bilateral Cardiovascular: RRR, no significant murmur Gastrointestinal: soft, non-tender, no distention Musculoskeletal: no edema, pulses present Neurological: non-focal, normal sensation, moves all 4 limbs Psychiatric: normal affect, A&O x 3 Skin: no rash, normal turgor <Axel Hernández - Last Filed: 07/03/17 08:20> Dx/Plan (1) Acute hepatic failure Status: Acute (2) Hepatic encephalopathy Code(s): K72.90 - HEPATIC FAILURE, UNSPECIFIED WITHOUT COMA Status: Acute (3) Hyperbilirubinemia Code(s): E80.6 - OTHER DISORDERS OF BILIRUBIN METABOLISM Status: Acute (4) Acute kidney injury superimposed on CKD Code(s): N17.9 - ACUTE KIDNEY FAILURE, UNSPECIFIED; N18.9 - CHRONIC KIDNEY DISEASE, UNSPECIFIED Status: Acute (5) HTN (hypertension) Code(s): I10 - ESSENTIAL (PRIMARY) HYPERTENSION Status: Acute (6) HLD (hyperlipidemia) Code(s): E78.5 - HYPERLIPIDEMIA, UNSPECIFIED Status: Acute (7) Normocytic anemia Code(s): D64.9 - ANEMIA, UNSPECIFIED Status: Acute (8) BPH (benign prostatic hyperplasia) Code(s): N40.0 - BENIGN PROSTATIC HYPERPLASIA WITHOUT LOWER URINRY TRACT SYMP Status: Acute - Plan Plan: (1) Acute Hepatic Failure: - 2/2 ampullary stricture, possibly due to neoplasm - No complaints, hx significant for decreased appetite and weight loss - No hx of liver disease, alcohol or iv drug use, or transfusions - No recent illnesses - MELD score of 33 on admission, down to 25, 19.6% 3 month mortality - All liver function labs are downtrending - Ammonia on admission was 28 - CT abd showed dilated CBD and dilated hepatic biliary ducts - ERCP performed yesterday with sphincterotomy, cytology brushings, and biliary stent placement - Concern for intra-ampullary neoplasm - pending path (2) Hepatic Encephalopathy - Patient appears to be at his baseline - A&O X3 currently - Difficult to distinguish from residual memory and speech impairments from previous stroke - Lab error on initial ammonia level (>925), ammonia is actually 28 - Lactulose discontinued - continue to monitor (3) Hyperbilirubinemia: - Initial labs: Alk phos is 1623, Total bili 25.6, direct of 10.3 - labs are continuing to downtrend (4) NATHAN on CKD stage 3: - IVFs, NS at 130 ml/hr - possibly 2/2 hypovolemia - NATHAN is resolving (5) HTN - Continue to monitor - Start home meds (6) HLD - Home meds (7) BPH - Home meds <Axel Hernández - Last Filed: 07/03/17 08:20> Attending Addendum - Attending Addendum Date/Time: 07/03/1750 I personally evaluated the patient and discussed the management with Dr. Hernández. I agree with the History, Examination, Assessment and Plan documented above with any addition or exceptions noted below. Patient feeling well this morning. His labs continue to trend downward in an improved direction. He reports no complaints. Contine fluid hydration for his kidney injury, and awaiting pathology. Ca19-9 elevated which may further point to possible biliary or pancreatic neoplasm. GI on board. <Byron Ho - Last Filed: 07/03/17 09:52>
[2017-07-03] MEDS ORDERED: Famotidine 20 MG TAB PO SCH (09:00)
[2017-07-03 09:09] VITALS: BMI 24.7
[2017-07-03] MEDS: Loratadine 10 MG TAB PO SCH (09:13)
[2017-07-03] MEDS: Amlodipine 5 MG TAB PO SCH (09:13)
--- NOTE | 2017-07-03 15:39 | CON ---
DATE OF CONSULTATION: 07/03/2017 REASON FOR CONSULTATION: Ampullary adenocarcinoma. HISTORY OF PRESENT ILLNESS: Mr. Miller is an 86-year-old gentleman with past medical history of CVA who was accompanying his on her visit to our clinic on Thursday. It was noted that he was extrem mt jaundiced and blood was drawn by Dr. Holden. He was sent directly to his primary care for evalu ation. His bilirubin was 25.6. He came from Dr. Royal's office to the ER for admission. Dr. Silva s aw the patient and performed ERCP with stent placement. Dr. Silva noted bulging ampulla with an ampul go stricture. Biopsy confirmed adenocarcinoma. The patient states he was in his normal state of h ealth. He had a stroke in the past with residual language and memory issues. He is ambulatory. Sylvie coronel states that he has been slightly more yellow over the past couple of weeks. He denies any comp laints of pain. He has some weight loss over the past several months and complaints of reflux after eating. No abdominal distention, nausea or vomiting. PAST MEDICAL HISTORY: 1. Cerebrovascular accident. 2. Hypertension. 3. Hyperlipidemia. 4. Chronic kidney disease, stage 3. 5. Benign prostatic hypertrophy. 6. Chronic back pain. PAST SURGICAL HISTORY: 1. Carotid endarterectomy. 2. Back surgery. ALLERGIES: NSAIDS, PENICILLIN, CODEINE and SULFA. HOME MEDICATIONS: 1. Amlodipine 2.5 mg daily. 2. Aspirin 81 mg daily. 3. Lipitor 20 mg daily. 4. Lisinopril 2.5 mg daily. 5. Nitro p.r.n. 6. Protonix 40 mg daily. 7. MiraLax 17 grams daily. 8. Flomax 0.4 mg daily. 9. Topiramate 100 mg b.i.d. FAMILY HISTORY: Noncontributory. SOCIAL HISTORY: He is , lives with his , has a daughter who is a nurse. 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 REVIEW OF SYSTEMS: Twelve-point review of systems is negative except for noted in HPI. PHYSICAL EXAMINATION: VITAL SIGNS: Temperature is 97.8, pulse is 70, respiratory rate 16, BP is 144/68, he is 99% on room air. GENERAL: Elderly gentleman in no acute distress. HEENT: Normocephalic, atraumatic. Pupils equal and reactive to light. He does have scleral icterus . NECK: Supple. CARDIOVASCULAR: Regular rate and rhythm. LUNGS: Clear. ABDOMEN: Soft, nontender, bowel sounds are positive. EXTREMITIES: No clubbing, cyanosis or edema. SKIN: No rash. Positive for jaundice. HEMATOLOGICAL: There is no petechia or purpura. NEUROLOGIC: Patient has some difficulty with speech, but moves all extremities. PSYCHIATRIC: The patient is alert and oriented. PERTINENT LABORATORY DATA AND IMAGING DATA: Current WBCs are 7.9, hemoglobin 8.9, hematocrit 26.9, p latelet count is 225,000, 78% neutrophils, 13% lymphocytes. PT is 15, INR is 1.2, PTT 38.6. Sodium is 133, potassium 3.9, chloride 111, CO2 17, BUN is 38, creatinine 2.19, calcium 7.9, total bilirubin is 10.1, AST is 94, ALT is 76, alkaline phosphatase is 986, serum total protein is 5.1, albumin 2.1, globulin 4. AFP is less than 2. CEA is 1.79 and CA-19/9 is 371. Abdominal and pelvis CT showed th e biliary ductal dilation, but no evidence of metastatic disease. IMPRESSION: 1. Ampullary adenocarcinoma. 2. Obstructive jaundice secondary to #1, now status post ERCP and stent placement. DISCUSSION: Patient appears to have no metastatic disease. Adenocarcinoma appears to be confined to the ampulla. This case was discussed with Dr. Wooten. A surgical opinion with a liver surgeon is first line of therapy. He will be referred in the outpatient setting to one of our surgeons that we deal with in [place]. Should he would be candidate for resection, we will be happy to see him afterw ards. If he is not a candidate for resection, then we will likely give chemotherapy. This was discu ssed in detail with his daughter as well as with Dr. Hernández. Thank you for the consult. The patient can go home when okay with other physicians and will follow u p with us in the outpatient setting.
[2017-07-03 16:03] VITALS: BP 164/76; TEMP 97.7
--- NOTE | 2017-07-03 19:17 | PRG ---
DATE OF SERVICE: Mr. Miller is feeling well. Apparently last night he had some pain after eating on e Tums and did not get any till 10:00 at night, he was pretty upset about. PHYSICAL EXAMINATION: VITAL SIGNS: Temperature is 97.8, pulse 70, blood pressure is 144/68. ABDOMEN: Soft, nontender. LUNGS: Clear. CARDIAC: Heart regular, without clicks or murmurs. LABORATORY STUDIES: Sodium 133, BUN and creatinine are 30 and 2.19, back to baseline. AST 94, ALT 7 6, alkaline phosphatase 96 down from 1549, and bilirubin is 10.1, down from 25. White count 7.9, hem oglobin is 8.9 and stable, platelet count is 225 and antimitochondrial antibody was normal. Hepatiti s A, B, C was negative. Cancer marker, CEA was 1.7. CA 19-9 was 371. Pathology on the brushings fr om the distal biliary stricture showed adenocarcinoma. 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 I ta lked with the patient a little bit about this diagnosis, talked more with the patient's daughter who is healthcare provider by her understanding. At this time, I think he is a very poor surgical candid ate at age 86 with a significant renal dysfunction and prior strokes and cardiovascular disease. My recommendation to have an endoscopic ultrasound to be performed here locally and if he has no evidenc e of metastatic disease, we can refer him for consideration of local resection which again even a medina ited resection of this area is going to be difficult and would likely put the patient risk of signifi cant morbidity and mortality. The other option would be a very localized radiation therapy which may be some to consider additional unit changes that we could place a palliative metal stent.
--- NOTE | 2017-07-03 19:46 | DIS-2 ---
DATE OF ADMISSION: 06/30/2017 DATE OF DISCHARGE: 07/03/2017. RESIDENT: Axel Hernández MD. ADMITTING ATTENDING: Dr. Byron Ho. DISCHARGE ATTENDING: Dr. Byron Ho. CONSULTATIONS: 1. Gastroenterology, Dr. Lawson on 07/01/2017. 2. Dr. Sebastián Fung with General Surgery on 07/01/2017. 3. Dr. Uriel Wooten with Oncology on 07/03/2017. PROCEDURES: 1. CT abdomen and pelvis. Impression: Intra and extrahepatic biliary ductal dilatation of uncertain etiology based on this noncontrasted CT scan exam. Gallbladder distention with evidence of cholelithiasis, large exophytic left renal cyst, nonobstructing approximately 3 mm left renal calculus. Small hiatal hernia. No CT evidence of appendicitis. GI consultation for further evaluation is recommended. 2. ERCP x-ray on 07/01/2017. Impression: There is mild central intrahepatic biliary dilatation. The contrast does not extend into the duodenum and there is an abrupt tapering of the common bile duct in the region of the ampulla bladder. A small amount of contrast is seen extending towards the duodenum. We will order images show a stent placed over this area which could represent a stricture or could represent a mass in the region of the ampulla of Vater. 3. Abdominal ultrasound on 07/01/2017. Impression: Cholelithiasis. Dilated common bile duct. No obvious calcification seen in the common bile duct. MRCP/ MRI of the abdomen was recommended for more definitive diagnosis. 4. Endoscopic retrograde cholangiopancreatography with sphincterotomy, cytology , brushing and biliary stent placement on 07/01/2017. There was a bulging ampulla with an ampullary stricture approximately 1 cm in length periampullary diverticulum, dilated common bile duct to 1.5 cm and mildly dilated intrahepatic biliary tree. No evidence of choledocholithiasis. 5. PTH Non-INDUSTRIAL EDITOR cytology specimen, ampullary brushings, cytology is adenocarcinoma. PRIMARY DIAGNOSIS: Ampullary Adenocarcinoma. SECONDARY DIAGNOSES: 1. 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 2. Elevated total bilirubin and direct bilirubin. 3. Transaminitis. 4. Acute on chronic kidney disease. 5. Normocytic anemia. 6. Benign prostatic hypertrophy. 7. Hypertension. 8. Hyperlipidemia. 9. History of cerebrovascular accident. DISCHARGE MEDICATIONS: Resume home medications includin. Nitroglycerin 0.4 mg sublingual every 5 minutes p.r.n. 2. Pantoprazole 40 mg p.o. daily. 3. Folic acid 1 mg p.o. daily. 4. Tamsulosin HCL 0.4 mg p.o. at bedtime. 5. Lisinopril 2.5 mg daily. 6. Atorvastatin calcium 20 mg p.o. at bedtime. 7. Aspirin 81 mg p.o. daily. 8. MiraLax 17 grams p.o. daily. 9. Topiramate 100 mg p.o. b.i.d. 10. Loratadine 10 mg p.o. daily. 11. [place] 7.5/325 one tab p.o. q.i.d. p.r.n. 12. Vitamin D2 50,000 units p.o. q.7 days. 13. Amlodipine besylate 2.5 mg p.o. daily. 14. Tums 1000 mg p.o. q.6 hours p.r.n. 15. Famotidine 200 mg p.o. a.m. HISTORY OF PRESENT ILLNESS/HOSPITAL COURSE: John Miller is an 86-year- old male with past medical history of hypertension, hyperlipidemia, BPH, and history of stroke, who presented as a direct admit from Dr. Royal's office. The patient was with his for an appointment for her at Dr. Holden's office day before admission and Dr. Holden noticed how yellow the patient's skin was. Dr. Holden ordered CBC, CMP and direct and total bilirubin and had him follow up with Dr. Royal, his PCP. The patient was seen in Dr. Royal's office on the day of admission and his labs were remarkable for a total bilirubin of 25.6, direct bilirubin of 10.9, AST was 278, ALT was 140, alkaline phosphatase was 1623 and creatinine was 3.03. 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 He is normally AO x4. His daughter, who is a nurse, stated that he seemed to be slightly below his normal baseline mental status. She has noticed that the skin has looked slightly more yellow for the last couple of weeks, but it has not been as obvious as it is now. Him and his daughter states that he has had decreased p.o. intake and decreased appetite for several months, but he denies any complaints or pain. He has also had some weight loss during that time, an unspecified amount. Denies any abdominal pain, nausea, and vomiting any time during, before, or after eating. No history of cholecystectomy. The patient has no recent illness. He is a direct admit from Dr. Royal's office. The patient was admitted for acute hepatic failure with hepatic encephalopathy. GI was consulted. His initial MELD score was 33. He had no history of liver disease, alcohol, or IV drug use and no transfusions. Right upper quadrant ultrasound and CT abdomen was ordered. GI saw the patient and decided to do an ERCP. Results of the ERCP are as above. Sphincterotomy was performed and stent placement. Cytology brushings of the ampulla were performed. The patient' s elevated bilirubin, AST, ALT, and alkaline phosphatase all downtrended after the procedure for the next couple of days. The patient's jaundice began to improve. MELD score downtrended on day of discharge was 25. Brushing cytology was done during the ERCP and 2 days later, this resulted in ampullary adenocarcinoma and Oncology was consulted. The cause of his acute liver failure was secondary to biliary obstruction from ampullary stricture and ampullary adenocarcinoma. Oncology recommended the patient following up outpatient to discuss treatment options with him and the family. The patient's family was notified by Oncology as well as GI and the patient's case was discussed with him by the primary team , the GI team and the oncology team. GI stated that they did not think that the patient is a good surgical candidate due to age, hx of CVA and CKD. The patient was cleared for discharge by Gastroenterology and Primary Medical team on 07/03/2017 with instructions to follow up with Oncology, GI and primary care provider within 1-2 weeks. DISPOSITION: Poor prognosis as the patient has ampullary adenocarcinoma vs cholangiocarcinoma. The patient will need to follow up with Dr. Wooten of Oncology, and Dr. Varghese of GI as well as his primary care provider, Dr. Royal. DISCHARGE INSTRUCTIONS: 1. Location: Home. 2. Diet: Heart healthy and diabetic diet. 3. Activity: As tolerated. 4. Follow up with primary care provider, Dr. Royal, Dr. Wooten, and Dr. Varghese. [facility]ITAL[facility]
[2017-07-04] MEDS ORDERED: Famotidine 20 MG TAB PO SCH (09:00)
== END 2017-07-03 17:47 | disposition home or self-care (01) | DRG 435 ==
LOC: 2NO 15:22
PROVIDERS: ADMIT Student in an Organized Health Care Education/Training Program; ATTEND Student in an Organized Health Care Education/Training Program
PROC: 0FBC8ZX Excision of Ampulla of Vater, Via Natural or Artificial Opening Endoscopic, Diagnostic (ICD-10-PCS; principal; 2017-07-01)
PROC: 0F798DZ Dilation of Common Bile Duct with Intraluminal Device, Via Natural or Artificial Opening Endoscopic (ICD-10-PCS; 2017-07-01)
DX: C24.1 Malignant neoplasm of ampulla of Vater (principal); K72.00 Acute and subacute hepatic failure without coma; K83.1 Obstruction of bile duct; N17.9 Acute kidney failure, unspecified; E78.5 Hyperlipidemia, unspecified; D64.9 Anemia, unspecified; N40.0 Benign prostatic hyperplasia without lower urinary tract symptoms; I12.9 Hypertensive chronic kidney disease with stage 1 through stage 4 chronic kidney disease, or unspecified chronic kidney disease; N18.3 Chronic kidney disease, stage 3 (moderate); I69.328 Other speech and language deficits following cerebral infarction; I69.311 Memory deficit following cerebral infarction; Z88.6 Allergy status to analgesic agent; Z88.5 Allergy status to narcotic agent; Z88.0 Allergy status to penicillin; Z88.2 Allergy status to sulfonamides; Z79.899 Other long term (current) drug therapy
CPT/HCPCS: 36415; 36416; 74176; 74330; 76705; 80053; 80074; 80307; 82105; 82140; 82248; 82378; 82977; 83516; 83690; 84439; 84443; 84481; 85025; 85610; 85730; 86301; 88104; J0744; J1100; J2001; J2405; J2704; J3010; Q9961

== ENCOUNTER 2017-09-03 07:12 | Day surgery (SDC) | payer MEDICARE ==
[2017-09-03] MEDS ORDERED: Iothalamate Meglumine 60% 50 ML VIAL FS ONE (08:58)
[2017-09-03] MEDS ORDERED: Indomethacin 50 MG SUPP ONE (08:58)
[2017-09-03] MEDS ORDERED: Fentanyl 100 MCG/2 ML VIAL ONE (09:14)
[2017-09-03] MEDS ORDERED: Levofloxacin 500 mg/D5W 100 ml Premix Bag ONE (09:16)
--- NOTE | 2017-09-03 12:45 | RAD ---
ERCP: HISTORY: An 87-year-old male with a history of follow-up abdominal pain. COMPARISON: 07/01/2017 FINDINGS: A single portable fluoroscopic spot film demonstrates some contrast within the gallbladder, which is not distended, as well as nondilated, partially visualized intrahepatic ducts. The stent, which was placed on 07/01/2017 is not definitely visualized, although conceivably could be obscured by the endo scope. IMPRESSION: Single portable fluoroscopic spot film demonstrates minimal contrast in a nondilated gallbladder and a nondilated upper collecting system. The previously noted indwelling stent is not visualized on thi s study. POS: ANETA
[2017-09-03] MEDS ORDERED: Ondansetron HCl/PF 4 MG/2 ML Vial ONE (14:23)
[2017-09-03] MEDS ORDERED: Dexamethasone 20 MG/5 ML VIAL ONE (14:23)
[2017-09-03] MEDS ORDERED: Lidocaine 1% PF 5 ML VIAL ONE (14:23)
[2017-09-03] MEDS ORDERED: PROPOFOL 200 MG/20 ML VIAL ONE (14:23)
[2017-09-03] MEDS ORDERED: ePHEDrine/0.9% NaCl/PF SYRINGE 50 mg/10 ml ONE (14:23)
[2017-09-03] MEDS ORDERED: Glycopyrrolate 0.2 MG/ML 5 ML SYRINGE ONE (14:23)
--- NOTE | 2017-09-03 14:25 | OP ---
DATE OF SERVICE 09/03/2017 PREOPERATIVE DIAGNOSES: 1. Ampullary adenocarcinoma diagnosed on 07/01/2017 with placement of plastic stent at that time. 2. The patient has refused referral to Oncology, refused referral to [facility] for endoscopic ultrasound for staging after not being felt to be a candidate for EUS at [facility] here locally. 3. After a long conversation with the patient and his daughter, who agreed with this decision to pursue comfort measures, understanding that this is probably a treatable lesion, but he has refused that treatment and we will pursue with comfort measures. The patient and daughter are both comfortable with their decision. 4. The original stent has been in now for 8 weeks and needs to be changed and he has opted to have a metallic stent placed for permanent, so does not have to have recurrent stent changes. ANESTHESIA: General endotracheal anesthesia. POSTOPERATIVE DIAGNOSES: A 10 x 40 mm WallFlex [employer] stent was placed across the ampulla replacing the previous plastic stent. RECOMMENDATIONS: Follow up as needed as patient's disease progresses. We would strongly consider hospice care at that time. PROCEDURE IN DETAIL: After the patient was informed of the risks, benefits, possible complications of endoscopy including perforation, bleeding, reaction to medication and aspiration, and pancreatitis, informed consent was obtained. The patient brought to endoscopy suite. He was intubated. He was placed in the prone position. Side-viewing duodenoscope was advanced into the esophagus, stomach, second and third portion of duodenum. The ampulla was visualized and there was a plastic stent, which was noted at the ampulla. This was grasped and removed. The cannulation was then obtained with a sphincterotome. Wire was placed up in the common bile duct. The duct is not overly dilated. There were some filling defects in the duct, which may be stones versus sludge versus air. With a good cholangiogram performed, guidewire was left in place and then a WallFlex stent 10 x 40 mm was advanced over the catheter and placed across the ampulla with both fluoroscopic and endoscopic guidance and then deployed under fluoroscopic and endoscopic guidance with good placement. Photodocumentation was obtained. Radiologic documentation was obtained. The scope was removed. The patient tolerated the procedure well and no complications. MIHAI
== END 2017-09-03 11:53 | disposition home or self-care (01) ==
LOC: SDC 07:12
PROVIDERS: ATTEND Internal Medicine Gastroenterology
PROC: 0FPB8DZ Removal of Intraluminal Device from Hepatobiliary Duct, Via Natural or Artificial Opening Endoscopic (ICD-10-PCS; principal; 2017-09-03)
PROC: 0F798DZ Dilation of Common Bile Duct with Intraluminal Device, Via Natural or Artificial Opening Endoscopic (ICD-10-PCS; 2017-09-03)
DX: C24.1 Malignant neoplasm of ampulla of Vater (principal); I25.10 Atherosclerotic heart disease of native coronary artery without angina pectoris; Z79.82 Long term (current) use of aspirin; Z79.899 Other long term (current) drug therapy; Z88.0 Allergy status to penicillin; Z88.2 Allergy status to sulfonamides; Z88.5 Allergy status to narcotic agent; Z88.6 Allergy status to analgesic agent
CPT/HCPCS: 43276; 74330; C1874; J1100; J1956; J2001; J2405; J2704; J3010; Q9961

== ENCOUNTER 2017-10-28 20:57 | Emergency (ER) | payer MEDICARE ==
[2017-10-28] MEDS ORDERED: Ondansetron ODT 4 MG TAB ONE (21:44)
[2017-10-28 22:25] LABS: #Eosinphils 0.2 thou/uL (0.0-0.7); #Lymphocytes 1.4 thou/uL (1.20-3.40); #Monocytes 0.5 thou/uL (0.11-0.59); #Neutrophils 5.2 thou/uL (1.40-6.50); %Basophils 0.5 % (0.0-1.0); %Eosinophils 2.5 % (0.0-10.0); %Lymphocytes 18.8 % (21.0-51.0); %Monocytes 6.5 % (0.0-10.0); %Neutrophils 71.8 % (42.0-75.0); Hemoglobin 12.4 g/dL (14.0-18.0); Mean Corpuscular Hemoglobin 32.5 pg (27.0-31.0); Mean Corpuscular Volume 95.6 fL (78.0-98.0); Mean Platelet Volume 7.4 fL (7.4-10.4); Platelet Count 186 thou/uL (130-400); RBC Distribution Width 12.6 % (11.5-14.5); White Blood Cell (WBC) Count 7.2 thou/uL (4.8-10.8)
[2017-10-28 22:50] LABS: ALT (SGPT) 19 U/L (8-55); AST (SGOT) 21 U/L (5-34); Alkaline Phosphatase 105 U/L (40-150); Anion Gap 13 mmol/L (10-20); BUN (Urea Nitrogen) 44 mg/dL (8.4-25.7); Bilirubin, Total 0.4 mg/dL (0.2-1.2); Calc. Creatinine Clearance 0 mL/min (70-130); Calcium 10.1 mg/dL (7.8-10.44); Carbon Dioxide 20 mmol/L (23-31); Chloride 110 mmol/L (98-107); Estimated GFR-MDRD 26; Globulin 3.6 g/dL (2.4-3.5); Glucose 136 mg/dL (83-110); Lipase 101 U/L (8-78); Potassium 5.3 mmol/L (3.5-5.1); Protein, Total 7.6 g/dL (5.8-8.1); Sodium 138 mmol/L (136-145)
== END 2017-10-28 22:19 | disposition left against medical advice (07) ==
LOC: ERS 20:57
DX: Z53.21 Procedure and treatment not carried out due to patient leaving prior to being seen by health care provider (principal)
CPT/HCPCS: 36415; 80053; 83690; 85025; Q0162

== ENCOUNTER 2017-12-07 15:40 | Inpatient (IN) | payer MEDICARE ==
[2017-12-07 17:28] LABS: #Neutrophils 15.5 thou/uL (1.40-6.50); %Eosinophils 0.1 % (0.0-10.0); %Lymphocytes 5.7 % (21.0-51.0); %Monocytes 5.9 % (0.0-10.0); %Neutrophils 88.3 % (42.0-75.0); Hemoglobin 10.5 g/dL (14.0-18.0); Mean Corpuscular HGB CONC 31.3 g/dL (32.0-36.0); Mean Corpuscular Hemoglobin 30.6 pg (27.0-31.0); Mean Corpuscular Volume 97.7 fL (78.0-98.0); Mean Platelet Volume 7.8 fL (7.4-10.4); Platelet Count 230 thou/uL (130-400); RBC Distribution Width 12.7 % (11.5-14.5); Red Blood Cell (RBC) Count 3.44 mill/uL (4.70-6.10); White Blood Cell (WBC) Count 17.5 thou/uL (4.8-10.8)
[2017-12-07 17:53] LABS: ALT (SGPT) 78 U/L (8-55); AST (SGOT) 271 U/L (5-34); Albumin 3.3 g/dL (3.4-4.8); Alkaline Phosphatase 78 U/L (40-150); Anion Gap 18 mmol/L (10-20); BUN (Urea Nitrogen) 55 mg/dL (8.4-25.7); Bilirubin, Total 1.4 mg/dL (0.2-1.2); Calc. Creatinine Clearance 0 mL/min (70-130); Calcium 9.6 mg/dL (7.8-10.44); Carbon Dioxide 13 mmol/L (23-31); Chloride 110 mmol/L (98-107); Estimated GFR-MDRD 24; Globulin 3.8 g/dL (2.4-3.5); Glucose 127 mg/dL (83-110); Potassium 4.1 mmol/L (3.5-5.1); Protein, Total 7.1 g/dL (5.8-8.1); Sodium 137 mmol/L (136-145); Troponin I 0.044 ng/mL (< 0.028)
[2017-12-07 17:56] LABS: CKMB 59.2 ng/mL (0-6.6)
--- NOTE | 2017-12-07 18:36 | RAD ---
CHEST ONE VIEW: HISTORY: Fall. Chest injury. FINDINGS: The cardiac silhouette is magnified by projection. The pulmonary vasculature are unremarkable. The mediastinum is midline with aortic calcification. No lobar consolidation or evidence of pneumothorax . cafeteria monitor leads overly the chest. IMPRESSION: 1. Atherosclerosis. 2. No active cardiopulmonary abnormalities are otherwise demonstrated. POS: ANETA
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
[2017-12-07 20:46] LABS: Troponin I 0.039 ng/mL (< 0.028)
[2017-12-07] MEDS ORDERED: HYDROcodone/Acetaminophen 5/325 mg Tablet PO PRN ×2 (21:46)
[2017-12-07] MEDS ORDERED: Ondansetron HCl/PF 4 MG/2 ML Vial IVP PRN ×2 (21:46→22:09)
[2017-12-07] MEDS ORDERED: Ondansetron ODT 4 MG TAB SL PRN (21:46)
[2017-12-07] MEDS ORDERED: Acetaminophen 325 MG TAB PO PRN ×2 (21:46→22:09)
[2017-12-07] MEDS ORDERED: Sodium Chloride 0.9% 1,000 ML IV SCH (22:00)
[2017-12-07] MEDS ORDERED: Nitroglycerin 0.4 MG TAB (25 Tab Bottle) SL PRN (22:09)
[2017-12-07] MEDS ORDERED: Ondansetron ODT 4 MG TAB PO PRN (22:09)
[2017-12-07] MEDS ORDERED: Haloperidol Lactate 5 MG/ML VIAL SLOW IVP PRN (22:09)
[2017-12-07] MEDS ORDERED: Topiramate 100 MG TAB PO SCH (22:30)
[2017-12-07 23:31] VITALS: BMI 23.0
[2017-12-07 23:40] LABS: Troponin I 0.033 ng/mL (< 0.028)
[2017-12-07 23:41] LABS: CKMB 51.1 ng/mL (0-6.6); Critical Call CKMBM RESULT DECREASING
[2017-12-07] MEDS: Lactated Ringer's 1,000 ML IV SCH (23:58)
[2017-12-08 04:39] LABS: #Eosinphils 0.1 thou/uL (0.0-0.7); #Lymphocytes 1.5 thou/uL (1.20-3.40); #Monocytes 0.7 thou/uL (0.11-0.59); #Neutrophils 9.3 thou/uL (1.40-6.50); %Basophils 0.3 % (0.0-1.0); %Eosinophils 0.6 % (0.0-10.0); %Lymphocytes 13.1 % (21.0-51.0); %Monocytes 6.4 % (0.0-10.0); %Neutrophils 79.7 % (42.0-75.0); Hemoglobin 8.8 g/dL (14.0-18.0); Mean Corpuscular HGB CONC 32.2 g/dL (32.0-36.0); Mean Corpuscular Hemoglobin 30.9 pg (27.0-31.0); Mean Platelet Volume 7.8 fL (7.4-10.4); Platelet Count 196 thou/uL (130-400); RBC Distribution Width 12.8 % (11.5-14.5); Red Blood Cell (RBC) Count 2.85 mill/uL (4.70-6.10); White Blood Cell (WBC) Count 11.7 thou/uL (4.8-10.8)
[2017-12-08] MEDS: Lactated Ringer's 1,000 ML IV SCH ×5 (04:46→22:03)
[2017-12-08 04:59] LABS: Chloride 114 mmol/L (98-107); Potassium 4.1 mmol/L (3.5-5.1); Sodium 139 mmol/L (136-145)
[2017-12-08 05:00] LABS: ALT (SGPT) 63 U/L (8-55); AST (SGOT) 183 U/L (5-34); Albumin 2.7 g/dL (3.4-4.8); Alkaline Phosphatase 66 U/L (40-150); BUN (Urea Nitrogen) 55 mg/dL (8.4-25.7); Bilirubin, Total 0.6 mg/dL (0.2-1.2); Calc. Creatinine Clearance 30 mL/min (70-130); Calcium 8.3 mg/dL (7.8-10.44); Carbon Dioxide 18 mmol/L (23-31); Estimated GFR-MDRD 32; Glucose 104 mg/dL (83-110); Protein, Total 5.7 g/dL (5.8-8.1)
[2017-12-08 05:12] LABS: Anion Gap 11 mmol/L (10-20)
[2017-12-08 05:15] LABS: CK (CPK) 7069 U/L (30-200)
--- NOTE | 2017-12-08 07:45 | PDOC.FM ---
- Subjective Subjective: Mr. Miller is found sleeping comfortably in bed. when aroused: reporting some pain, denying shortness of breath or chest pain. - Objective Vital Signs & Weight: Vital Signs (12 hours) Temp Pulse Resp BP Pulse Ox 12/08/17 04:30 97.5 F L 68 20 162/74 H 98 12/08/17 00:28 97.6 F 62 20 148/65 H 98 12/07/17 22:09 96 12/07/17 22:00 97.8 F 76 18 139/79 99 Weight Weight 79.12 kg Result Diagrams: 12/08/17 04:19 12/08/17 04:19 Phys Exam - Physical Examination Constitutional: NAD HEENT: moist MMs Respiratory: no wheezing, no rales, no rhonchi, clear to auscultation bilateral Cardiovascular: RRR, no significant murmur, no rub Gastrointestinal: soft, no distention Musculoskeletal: no edema Psychiatric: normal affect Dx/Plan (1) Rhabdomyolysis Code(s): M62.82 - RHABDOMYOLYSIS Status: Acute (2) Acute kidney injury superimposed on CKD Code(s): N17.9 - ACUTE KIDNEY FAILURE, UNSPECIFIED; N18.9 - CHRONIC KIDNEY DISEASE, UNSPECIFIED Status: Acute (3) HLD (hyperlipidemia) Code(s): E78.5 - HYPERLIPIDEMIA, UNSPECIFIED Status: Acute (4) HTN (hypertension) Code(s): I10 - ESSENTIAL (PRIMARY) HYPERTENSION Status: Acute - Plan Plan: Acute rhabdomyolysis 2/2 immobility x 2-3 days, present on admission ([place] [address] on admission. now 7000 - Pt. received 2 L of NS in ER - LR 200ml/hr - Walking program. 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 is on hospice which will be revoked for this hospital stay. Pt. is receiving fentanyl patch as well as PRN pain medications. We are monitoring LFTs while he is here. Pt. had placement of metal WallFlex stent placed in by Dr. Varghese in the ampulla Transaminitis POA -Likely 2/2 to above, aware CKD stage 4 -Pt. cr appears ~ at baseline. We will continue to monitor and hold lisinopril for now. Continue IVFs HTN -Continue norvasc. HLD -Aware BPH -Does not appear to be on any medications at this time. If BP is elevated during stay, may consider adding a2 erick if symptomatic Code: DNR Prophylaxis: SCDs Family: Daughter, ZHANE, present at beside. Plan discussed with her and she is agreeable at this time. Disposition: DC to long term in 3-4 days
[2017-12-08] MEDS: Polyethylene Glycol 3350 17 GM Packet PO SCH (10:13)
[2017-12-08] MEDS: Amlodipine 5 MG TAB PO SCH (10:13)
[2017-12-08] MEDS: Folic Acid 1 MG TAB PO SCH (10:14)
[2017-12-08] MEDS: Loratadine 10 MG TAB PO SCH (10:15)
[2017-12-08 10:23] LABS: Bilirubin Small (Negative); Blood, Urine Large (Negative); Clarity CLEAR (Clear); Glucose, Urine (Dipstick) Negative (Negative); Leukocyte Negative (Negative); Nitrite Negative (Negative); Protein, Urine (Dipstick) 30 mg/dL (Neg-Trace); Specific Gravity, Urine 1.022 (1.002-1.036); pH, Urine 5.5 (5.0-9.0)
[2017-12-08 10:25] LABS: Bacteria/HPF None Seen HPF (None Seen); Hyaline Casts/LPF 4-6 HYALINE CAST LPF (0-3 Hyaline); Pathc Cast-AUWi Flag 1.16 (0-2.49); Squamous Epithelial None Seen HPF (0-3); WBC/HPF 0-3 HPF (0-3)
[2017-12-08] MEDS: Topiramate 100 MG TAB PO SCH ×2 (10:31→22:02)
--- NOTE | 2017-12-08 11:34 | PRG ---
DATE OF SERVICE: 12/08/2017 This is an addendum to the note of Dr. Angel Stafford. Mr. Miller is an 87-year-old white male patient with a history of metastatic pancreatic cancer. He w as found on his floor at home and had been there allegedly for about 3 days. Evidently his also has a degree of dementia and did not call immediately for help. In any event he was brought to our emergency room where he was noted to have a CK level of 14,000. Aggressive fluid resuscitation was u ndertaken and this morning his CPK is down around 7000. I would suggest maintaining increased fluids until his CPK is below 5000. At that time resort to maintenance fluids. In any event, the patient is awake, alert, confused, no distress. We will continue to follow the CPK until it is well below 50 00. He was admitted with a BUN of 55, a creatinine of 2.55 with a GFR of 24. He is now with a BUN 55, a creatinine of 1.99 and a GFR of 32.
[2017-12-09 04:31] LABS: #Eosinphils 0.3 thou/uL (0.0-0.7); #Lymphocytes 1.5 thou/uL (1.20-3.40); #Monocytes 0.5 thou/uL (0.11-0.59); #Neutrophils 5.1 thou/uL (1.40-6.50); %Basophils 0.2 % (0.0-1.0); %Eosinophils 3.5 % (0.0-10.0); %Lymphocytes 19.9 % (21.0-51.0); %Monocytes 7.4 % (0.0-10.0); Hemoglobin 8.6 g/dL (14.0-18.0); Mean Corpuscular HGB CONC 32.2 g/dL (32.0-36.0); Mean Corpuscular Hemoglobin 30.8 pg (27.0-31.0); Mean Corpuscular Volume 95.6 fL (78.0-98.0); Mean Platelet Volume 7.8 fL (7.4-10.4); Platelet Count 173 thou/uL (130-400); RBC Distribution Width 12.8 % (11.5-14.5); Red Blood Cell (RBC) Count 2.81 mill/uL (4.70-6.10); White Blood Cell (WBC) Count 7.3 thou/uL (4.8-10.8)
[2017-12-09 04:48] LABS: ALT (SGPT) 56 U/L (8-55); AST (SGOT) 113 U/L (5-34); Albumin 2.4 g/dL (3.4-4.8); Alkaline Phosphatase 55 U/L (40-150); Anion Gap 9 mmol/L (10-20); BUN (Urea Nitrogen) 43 mg/dL (8.4-25.7); Bilirubin, Total 0.5 mg/dL (0.2-1.2); CK (CPK) 2530 U/L (30-200); Calc. Creatinine Clearance 37 mL/min (70-130); Calcium 8.2 mg/dL (7.8-10.44); Carbon Dioxide 20 mmol/L (23-31); Chloride 113 mmol/L (98-107); Estimated GFR-MDRD 41; Globulin 2.8 g/dL (2.4-3.5); Glucose 104 mg/dL (83-110); Potassium 4.3 mmol/L (3.5-5.1); Protein, Total 5.2 g/dL (5.8-8.1); Sodium 138 mmol/L (136-145)
--- NOTE | 2017-12-09 06:07 | PDOC.FM ---
- Subjective Subjective: Mr. Miller is sleeping comfortably in bed, no complaints at this time. - Objective Vital Signs & Weight: Vital Signs (12 hours) Temp Pulse Resp BP Pulse Ox 12/08/17 20:00 97 12/08/17 19:10 97.7 F 63 20 135/64 97 Weight Weight 79.12 kg I&O: 12/07/17 12/08/17 12/09/17 06:59 06:59 06:59 Intake Total 2049 Balance 2049 Result Diagrams: 12/09/17 04:21 12/09/17 04:21 Phys Exam - Physical Examination Constitutional: NAD HEENT: moist MMs Respiratory: no wheezing, no rales, no rhonchi, clear to auscultation bilateral Cardiovascular: RRR, no significant murmur, no rub Gastrointestinal: soft, non-tender, no distention Musculoskeletal: no edema, pulses present Neurological: non-focal, normal sensation Psychiatric: normal affect Skin: no rash Dx/Plan (1) Rhabdomyolysis Code(s): M62.82 - RHABDOMYOLYSIS Status: Acute (2) Acute kidney injury superimposed on CKD Code(s): N17.9 - ACUTE KIDNEY FAILURE, UNSPECIFIED; N18.9 - CHRONIC KIDNEY DISEASE, UNSPECIFIED Status: Acute (3) HLD (hyperlipidemia) Code(s): E78.5 - HYPERLIPIDEMIA, UNSPECIFIED Status: Acute (4) HTN (hypertension) Code(s): I10 - ESSENTIAL (PRIMARY) HYPERTENSION Status: Acute - Plan Plan: Acute rhabdomyolysis 2/2 immobility x 2-3 days, present on admission ([place] [address] on admission, continuing to trend down - Pt. received 2 L of NS in ER - LR 125ml/hr - Walking program. 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 is on hospice which will be revoked for this hospital stay. Pt. is receiving fentanyl patch as well as PRN pain medications. We are monitoring LFTs while he is here. Pt. had placement of metal WallFlex stent placed in by Dr. Varghese in the ampulla - CM consulted for new hospice placement, longterm Transaminitis POA -Likely 2/2 to above, aware CKD stage 4 -Pt. cr appears ~ at baseline. We will continue to monitor and hold lisinopril for now. Continue IVFs HTN -Continue norvasc. HLD -Aware BPH -Does not appear to be on any medications at this time. If BP is elevated during stay, may consider adding a2 erick if symptomatic Code: DNR Prophylaxis: SCDs Family: Daughter, ZHANE. Plan discussed with her and she is agreeable at this time. Disposition: DC to longterm in 2-3 days
[2017-12-09] MEDS: Folic Acid 1 MG TAB PO SCH (10:46)
[2017-12-09] MEDS: Polyethylene Glycol 3350 17 GM Packet PO SCH (10:46)
[2017-12-09] MEDS: Amlodipine 5 MG TAB PO SCH (10:46)
[2017-12-09] MEDS: Loratadine 10 MG TAB PO SCH (10:47)
[2017-12-09] MEDS: Topiramate 100 MG TAB PO SCH ×2 (10:47→20:28)
[2017-12-09] MEDS: Lactated Ringer's 1,000 ML IV SCH ×2 (10:48→20:29)
--- NOTE | 2017-12-09 12:31 | ADD-PRG ---
ADDENDUM This is an addendum to the note of Dr. Angel Stafford. Mr. Miller is awake and alert this morning. Very talkative. We are still working on placement for t his gentleman. His CPK is now down to 2500 and we are maintaining fluids, but I have reduced the rat e.
[2017-12-10] MEDS: Lactated Ringer's 1,000 ML IV SCH ×2 (00:32→17:49)
[2017-12-10 04:18] LABS: #Eosinphils 0.3 thou/uL (0.0-0.7); #Lymphocytes 1.3 thou/uL (1.20-3.40); #Monocytes 0.6 thou/uL (0.11-0.59); #Neutrophils 4.9 thou/uL (1.40-6.50); %Basophils 0.6 % (0.0-1.0); %Eosinophils 3.7 % (0.0-10.0); %Lymphocytes 18.1 % (21.0-51.0); %Monocytes 8.5 % (0.0-10.0); %Neutrophils 69.1 % (42.0-75.0); Hemoglobin 8.5 g/dL (14.0-18.0); Mean Corpuscular HGB CONC 32.5 g/dL (32.0-36.0); Mean Corpuscular Hemoglobin 31.1 pg (27.0-31.0); Mean Corpuscular Volume 95.8 fL (78.0-98.0); Mean Platelet Volume 7.8 fL (7.4-10.4); Platelet Count 165 thou/uL (130-400); RBC Distribution Width 12.8 % (11.5-14.5); Red Blood Cell (RBC) Count 2.73 mill/uL (4.70-6.10); White Blood Cell (WBC) Count 7.1 thou/uL (4.8-10.8)
[2017-12-10 04:31] LABS: ALT (SGPT) 49 U/L (8-55); AST (SGOT) 72 U/L (5-34); Albumin 2.4 g/dL (3.4-4.8); Alkaline Phosphatase 62 U/L (40-150); Anion Gap 9 mmol/L (10-20); BUN (Urea Nitrogen) 37 mg/dL (8.4-25.7); Bilirubin, Total 0.5 mg/dL (0.2-1.2); CK (CPK) 1190 U/L (30-200); Calc. Creatinine Clearance 42 mL/min (70-130); Calcium 7.9 mg/dL (7.8-10.44); Carbon Dioxide 21 mmol/L (23-31); Chloride 113 mmol/L (98-107); Estimated GFR-MDRD 46; Globulin 2.6 g/dL (2.4-3.5); Glucose 119 mg/dL (83-110); Potassium 3.9 mmol/L (3.5-5.1); Sodium 139 mmol/L (136-145)
--- NOTE | 2017-12-10 06:35 | PDOC.FM ---
- Subjective Subjective: Mr. Miller is found sleeping comfortably in bed. He has no complaints at this time and would like to go home to take care of his . - Objective Vital Signs & Weight: Vital Signs (12 hours) Temp Pulse Resp BP Pulse Ox 12/09/17 19:20 97.9 F 65 20 156/71 H 99 Weight Weight 79.12 kg I&O: 12/08/17 12/09/17 12/10/17 06:59 06:59 06:59 Intake Total 2049 Balance 2049 Result Diagrams: 12/10/17 04:03 12/10/17 04:03 Phys Exam - Physical Examination Constitutional: NAD HEENT: moist MMs Neck: no nodes Respiratory: no wheezing, no rales, no rhonchi, clear to auscultation bilateral Cardiovascular: RRR, no significant murmur Gastrointestinal: soft, non-tender, no distention Musculoskeletal: no edema, pulses present Deviation from normal: Alert, aware he is in the hospital. Judgement and insight seem to be poor, his decision making capacity may be impaired Skin: no rash Dx/Plan (1) Rhabdomyolysis Code(s): M62.82 - RHABDOMYOLYSIS Status: Acute (2) Acute kidney injury superimposed on CKD Code(s): N17.9 - ACUTE KIDNEY FAILURE, UNSPECIFIED; N18.9 - CHRONIC KIDNEY DISEASE, UNSPECIFIED Status: Acute (3) HLD (hyperlipidemia) Code(s): E78.5 - HYPERLIPIDEMIA, UNSPECIFIED Status: Acute (4) HTN (hypertension) Code(s): I10 - ESSENTIAL (PRIMARY) HYPERTENSION Status: Acute - Plan Plan: Acute rhabdomyolysis 2/2 immobility x 2-3 days, present on admission ([place] [address] on admission, continuing to trend down - Pt. received 2 L of NS in ER - LR 75ml/hr Dehydration 2/2 immobility present on admission -IV hydration, monitor CMP - Walking program. 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 is on hospice which will be revoked for this hospital stay. Pt. is receiving fentanyl patch as well as PRN pain medications. We are monitoring LFTs while he is here. Pt. had placement of metal WallFlex stent placed in by Dr. Varghese in the ampulla - CM consulted for new hospice placement, residential Transaminitis POA -Likely 2/2 to above, aware CKD stage 4 -Cr. continues to down trend - consider restarting lisinopril if BP stays elevated HTN -Continue norvasc. HLD -Aware BPH -Does not appear to be on any medications at this time. If BP is elevated during stay, may consider adding a2 erick if symptomatic Code: DNR Prophylaxis: SCDs Family: Daughter, MPOA. Plan discussed with her and she is agreeable at this time. Disposition: DC to residential in 1-2 days
[2017-12-10] MEDS: Folic Acid 1 MG TAB PO SCH (10:00)
[2017-12-10] MEDS: Polyethylene Glycol 3350 17 GM Packet PO SCH (10:00)
[2017-12-10] MEDS: Topiramate 100 MG TAB PO SCH ×2 (10:00→21:38)
[2017-12-10] MEDS ORDERED: Tamsulosin HCl 0.4 MG CAP PO SCH (10:00)
[2017-12-10] MEDS: Amlodipine 5 MG TAB PO SCH (10:00)
[2017-12-10] MEDS: Loratadine 10 MG TAB PO SCH (10:01)
--- NOTE | 2017-12-10 10:36 | PRG ---
DATE OF SERVICE: 12/10/2017 Mr. Miller is again awake and alert. His CPK has dropped to 1190. His renal function is improving w ith a creatinine of 1.45, GFR 46 this morning. We are still awaiting placement.
--- NOTE | 2017-12-10 11:40 | PDOC.EVN ---
Event Note - Event Note Event Note: Examiner to evaluate patients current mental capacity MMSE performed: , indicating severe cognitive impairment Upon questioning his understanding of his current circumstances. He reports he has pancreatic cancer and would not like to do any treatments for it, he repeatedly states that he needs to get home to take care of his . He beleives he is able to care for himself and his . Examiner believes he lacks appropriate judgment and insight into current situation.
[2017-12-11] MEDS: Lactated Ringer's 1,000 ML IV SCH (02:50)
[2017-12-11 04:15] LABS: #Eosinphils 0.4 thou/uL (0.0-0.7); #Lymphocytes 1.7 thou/uL (1.20-3.40); #Monocytes 0.5 thou/uL (0.11-0.59); #Neutrophils 4.6 thou/uL (1.40-6.50); %Basophils 0.7 % (0.0-1.0); %Lymphocytes 23.9 % (21.0-51.0); %Neutrophils 62.5 % (42.0-75.0); Mean Corpuscular HGB CONC 32.1 g/dL (32.0-36.0); Mean Corpuscular Hemoglobin 30.9 pg (27.0-31.0); Mean Corpuscular Volume 96.4 fL (78.0-98.0); Mean Platelet Volume 7.3 fL (7.4-10.4); Platelet Count 179 thou/uL (130-400); RBC Distribution Width 13.1 % (11.5-14.5); Red Blood Cell (RBC) Count 2.91 mill/uL (4.70-6.10); White Blood Cell (WBC) Count 7.3 thou/uL (4.8-10.8)
[2017-12-11 04:57] LABS: ALT (SGPT) 42 U/L (8-55); AST (SGOT) 49 U/L (5-34); Albumin 2.4 g/dL (3.4-4.8); Alkaline Phosphatase 61 U/L (40-150); Anion Gap 8 mmol/L (10-20); BUN (Urea Nitrogen) 19 mg/dL (8.4-25.7); Bilirubin, Total 0.6 mg/dL (0.2-1.2); CK (CPK) 724 U/L (30-200); Calc. Creatinine Clearance 40 mL/min (70-130); Carbon Dioxide 22 mmol/L (23-31); Chloride 111 mmol/L (98-107); Estimated GFR-MDRD 44; Globulin 2.8 g/dL (2.4-3.5); Glucose 144 mg/dL (83-110); Protein, Total 5.2 g/dL (5.8-8.1); Sodium 137 mmol/L (136-145)
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
[2017-12-11] MEDS: Folic Acid 1 MG TAB PO SCH (09:10)
[2017-12-11] MEDS: Amlodipine 5 MG TAB PO SCH (09:10)
[2017-12-11] MEDS: Polyethylene Glycol 3350 17 GM Packet PO SCH (09:10)
[2017-12-11] MEDS: Tamsulosin HCl 0.4 MG CAP PO SCH (09:11)
[2017-12-11] MEDS: Loratadine 10 MG TAB PO SCH (09:11)
[2017-12-11] MEDS: Topiramate 100 MG TAB PO SCH ×2 (09:11→20:17)
--- NOTE | 2017-12-11 11:33 | PRG ---
DATE OF SERVICE: 12/11/2017 This is an addendum to the note of Dr. Angel Stafford. Mr. Miller's exam is unchanged. His CPK has dropped to below 700. I believe we can stop checking on this and continue with p.o. fluid hydration. We are still awaiting placement. Mr. Miller scored si gnificantly low on his MMSE indicating a severe dementia. He is therefore not likely to have insight into his multiple medical problems and home situation. We are still working on placement with case management.
--- NOTE | 2017-12-11 14:32 | PQF ---
CLINICAL DOCUMENTATION IMPROVEMENT CLARIFICATION FORM: ICD-10 Updated PLEASE DO AN ADDENDUM TO THE PROGRESS NOTE WITH ANY DOCUMENTATION UPDATES OR ADDITIONS AND CARRY THROUGH TO DC SUMMARY. THANK YOU. DATE: 12/11/17 ATTN: Dr. Stafford/ Attending Dr. Morris 12/14/17 Dr. Orr Please exercise your independent, professional judgment in responding to the clarification form. Clinical indicators are provided on the bottom of this form for your review Please check appropriate box(s): x I (concur) with Nursing Assessment and Wound Care findings as stated below. I ( concur) with Nursing Assessment findings as stated below. I (concur) with the Wound Care findings as stated below. [ x ] Pressure Ulcer: (Stage I: Erythema; Stage II: Partial thickness; Stage III: Full thickness; Stage IV: Necrosis to muscle/bone) [ ] Location: Stage (I to IV): __II___(Left Right___Bilateral___N/A_ x_) [ ] Location: Stage (I to IV): (Left Right___Bilateral___N/A___ ) [ ] Deep tissue injury [ ] Other diagnosis [ ] Unable to determine In addition, please specify: Present on Admission (POA): [ ] Yes [ ] No [x ] Unable to determine For continuity of documentation, please document condition throughout progress notes and discharge summary. Thank You. CLINICAL INDICATORS - SIGNS / SYMPTOMS / LABS NURSING ASSESSMENT 12/07 @ 2209: BUTTOCK PRESSURE ULCER. STAGE I SACROCOCCYGEAL PRESSURE ULCER. UNSTAGEABLE WOUND CARE ASSESSMENT 12/10: SACRAL PRESSURE ULCER. STAGE II RISKS: H&P: ACUTE RHABDOMYOLYSIS 2/2 IMMOBILITY X 2-3 DAYS. SKIN TEARS AND PRESSURE ULCERS: WOUND CARE TREATMENT: ORDER 12/10 : CONSULT WOUND CARE EVAL SKIN INTERVENTIONS PER NURSING PROTOCOL Pre-ulcer skin changes limited to persistent focal edema (Stage 1) Abrasion, blister, partial thickness skin loss involving epidermis and/or dermis (Stage 2) Full thickness skin loss involving damage or necrosis of SQ tissue. (Stage 3) Necrosis of soft tissue through to underlying muscle, tendon, or bone. (Stage 4) Purple or maroon discolored skin or blood filled blister Thank you, Shonna (This form is maintained as a part of the permanent medical record) 2014 [employer] All Rights Reserved Shonna Moody RN, BSN [email or web address] Office: [phone] [facility]
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
[2017-12-12] MEDS ORDERED: hydrALAZINE 20 MG/ML VIAL SLOW IVP PRN (06:11)
[2017-12-12] MEDS ORDERED: Furosemide 20 MG/2 ML VIAL SLOW IVP SCH (09:15)
[2017-12-12] MEDS ORDERED: Haloperidol 5 MG TAB PO SCH ×2 (09:15→21:00)
[2017-12-12] MEDS: Polyethylene Glycol 3350 17 GM Packet PO SCH (10:00)
[2017-12-12] MEDS: Amlodipine 5 MG TAB PO SCH (10:01)
[2017-12-12] MEDS: Topiramate 100 MG TAB PO SCH ×2 (10:02→20:39)
[2017-12-12] MEDS: Folic Acid 1 MG TAB PO SCH (10:02)
[2017-12-12] MEDS: Loratadine 10 MG TAB PO SCH (10:02)
[2017-12-12] MEDS: Tamsulosin HCl 0.4 MG CAP PO SCH (10:03)
[2017-12-12] MEDS: Haloperidol 5 MG TAB PO SCH (20:39)
[2017-12-12] MEDS ORDERED: hydrALAZINE 25 MG TAB PO SCH (21:00)
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
[2017-12-13 07:24] LABS: Anion Gap 7 mmol/L (10-20); BUN (Urea Nitrogen) 15 mg/dL (8.4-25.7); Calc. Creatinine Clearance 39 mL/min (70-130); Calcium 8.2 mg/dL (7.8-10.44); Carbon Dioxide 24 mmol/L (23-31); Chloride 109 mmol/L (98-107); Estimated GFR-MDRD 43; Glucose 103 mg/dL (83-110); Potassium 4.3 mmol/L (3.5-5.1); Sodium 136 mmol/L (136-145)
[2017-12-13] MEDS: Folic Acid 1 MG TAB PO SCH (08:58)
[2017-12-13] MEDS: Tamsulosin HCl 0.4 MG CAP PO SCH (08:59)
[2017-12-13] MEDS: Amlodipine 5 MG TAB PO SCH (08:59)
[2017-12-13] MEDS: Polyethylene Glycol 3350 17 GM Packet PO SCH (09:00)
[2017-12-13] MEDS: Loratadine 10 MG TAB PO SCH (09:00)
[2017-12-13] MEDS: Lisinopril 2.5 MG TAB PO SCH (09:00)
[2017-12-13] MEDS: Haloperidol 5 MG TAB PO SCH ×2 (09:05→21:19)
[2017-12-13] MEDS: Topiramate 100 MG TAB PO SCH ×2 (09:05→21:19)
[2017-12-13] MEDS: HYDROcodone/Acetaminophen 7.5/325 mg Tablet PO PRN (21:18)
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
[2017-12-14] MEDS ORDERED: Ergocalciferol 1.25 MG(50,000 UNITS) CAP PO SCH (09:00)
[2017-12-14] MEDS: Haloperidol 5 MG TAB PO SCH ×2 (10:41→21:10)
[2017-12-14] MEDS: Polyethylene Glycol 3350 17 GM Packet PO SCH (10:41)
[2017-12-14] MEDS: Topiramate 100 MG TAB PO SCH ×2 (10:42→21:10)
[2017-12-14] MEDS: Lisinopril 2.5 MG TAB PO SCH (10:42)
[2017-12-14] MEDS: Loratadine 10 MG TAB PO SCH (10:42)
[2017-12-14] MEDS: Tamsulosin HCl 0.4 MG CAP PO SCH (10:42)
[2017-12-14] MEDS: Amlodipine 5 MG TAB PO SCH (10:43)
[2017-12-14] MEDS: Folic Acid 1 MG TAB PO SCH (10:43)
[2017-12-14] MEDS: HYDROcodone/Acetaminophen 7.5/325 mg Tablet PO PRN (18:25)
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
[2017-12-15] MEDS: Lisinopril 2.5 MG TAB PO SCH (09:32)
[2017-12-15] MEDS: Folic Acid 1 MG TAB PO SCH (09:32)
[2017-12-15] MEDS: Topiramate 100 MG TAB PO SCH ×2 (09:33→21:54)
[2017-12-15] MEDS: Haloperidol 5 MG TAB PO SCH ×2 (09:33→21:55)
[2017-12-15] MEDS: Tamsulosin HCl 0.4 MG CAP PO SCH (09:33)
[2017-12-15] MEDS: Amlodipine 5 MG TAB PO SCH (09:33)
[2017-12-15] MEDS: Polyethylene Glycol 3350 17 GM Packet PO SCH (09:33)
[2017-12-15] MEDS: Loratadine 10 MG TAB PO SCH (09:34)
[2017-12-15 13:22] VITALS: TEMP 98
[2017-12-15 19:32] VITALS: BP 134/63
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
--- NOTE | 2017-12-18 08:33 | DIS-2 ---
DATE OF ADMISSION: 12/07/2017 DATE OF DISCHARGE: 12/16/2017 RESIDENT: Sugey Orr M.D. ADMITTING ATTENDING: Roxana Schneider M.D. DISCHARGE ATTENDING: Byron Ho M.D. CONSULTATIONS: None. PROCEDURES: Chest x-ray, which showed no active cardiopulmonary abnormalities. PRIMARY DIAGNOSES: 1. Hepatic encephalopathy. 2. Acute hepatic failure. 3. Acute kidney injury superimposed on chronic kidney disease. 4. Rhabdomyolysis. 5. Transaminitis. 6. Hyperbilirubinemia. SECONDARY DIAGNOSES: 1. Chronic kidney disease stage 4. 2. Benign prostatic hypertrophy. 3. Normocytic anemia. 4. Hyperlipidemia. 5. Dementia. DISCHARGE MEDICATIONS: 1. Nitroglycerin 0.4 mg sublingual tab every 5 minutes p.r.n. for chest pain. 2. Protonix 40 mg p.o. daily. 3. Folic acid 1 mg p.o. daily. 4. Aspirin 81 mg p.o. daily. 5. Loratadine 10 mg p.o. daily. 6. [place] 7.5/325 one tab p.o. q.i.d. p.r.n. for pain. 7. Acetaminophen 650 mg p.o. every 4 hours p.r.n. for pain. 8. Zofran 0.4 mg p.o. every 6 hours p.r.n. for nausea. 9. Risperdal 0.5 mg p.o. at bedtime. 10. Flomax 0.4 mg p.o. daily. 11. Amlodipine besylate 2.5 mg p.o. daily. 12. Vitamin D2 50,000 units p.o. every 7 days. 13. Lisinopril 2.5 mg p.o. daily. 14. Polyethylene glycol 17-gram packet p.o. daily. 15. Topiramate 100 mg p.o. b.i.d. DISCONTINUED MEDICATIONS: None. HOSPITAL COURSE: The patient is an 87-year-old gentleman with past medical history signifi cant for stage IV ampullary adenocarcinoma, hypertension, hyperlipidemia, CKD, BPH, history of CVA wh o presented to the Emergency Department from home after being found down by his daughter for approxim ately 48-72 hours. On initial presentation to the Emergency Department, the patient's vitals were no david to be within normal limits with the exception of an elevated blood pressure of 179/81. Routine l ab work was obtained, which was significant for an elevated white blood cell count of 17.5 and a hemo globin of 10.5, hematocrit of 33.6 consistent with the patient's diagnosis of chronic normocytic anem ia. His complete metabolic panel was significant for a BUN and creatinine of 55 and 2.55, significan tly elevated from his baseline. He also had elevated liver function tests and hyperbilirubinemia wit h a total bilirubin of 1.4 and AST and ALT of 271 and 78. His CK-MB was drastically elevated at 59.2 and his troponin was also elevated at 0.044. Lastly, the patient had a significantly elevated creat ine kinase of 14,557. A chest x-ray was also obtained, which showed no sign of any acute cardiopulmo nary process. He was therefore given 2 liters of normal saline in the Emergency Department and admit david to the medical oncology floor for aggressive rehydration therapy and monitoring overnight. On the floor, the patient was continued on IV fluids with LR at a rate of 200 mL an hour. His diet w as advanced as tolerated and his CK was trended for the next several days and steadily down trended u p to a level of 724 on 12/11/2017. By then, the patient was tolerating p.o. and his IV fluids were t herefore discontinued and the patient was able to maintain adequate hydration p.o. Regarding his oth er lab abnormalities, they also down trended and had returned to baseline [facility] Due to the circumstances surrounding the patient's admission including the unknown downtime and the f act that he was alone most of the week caring for his very ill with him being very ill himself, the patient's medical power of attorney general, his daughter, Janay decided it would be best to get Adult P rotective Services involved in assisting or recommending proper placement for her father upon dischar . APS came and evaluated the patient and determined it was unsafe for the patient to return home g iven the fact that he was admitted merely for dehydration after falling at home and having no one elisha ilable to assist him over at least 48-72 hours. Case management was therefore consulted to assist wi th placement to a fdc upon discharge and the patient was accepted by [facility]. However, upon sharing this news with the patient, the patient expressed strong aversio n to being discharged to a fdc and blatantly stated he would not go to a fdc. He w as therefore kept one additional night in order to give the family and case management time to decide what actions would need to be taken in order to get the patient safely escorted to the fdc. However, before the patient could be transported, he decided to leave the hospital against medical advice. The dry house tender was called and informed of the situation and stated that the patient aditya montejo could leave in his own free will; however, the [place] [employer] would have to be immedia tely notified of the patient leaving AMA and would be required to go to the patient's home and escort him back to the hospital to ensure his safety as it was deemed unsafe for the patient to be at home. Therefore, on the morning of 12/16/2017, the patient walked out of the hospital against medical adv ice and the [place] [employer] was notified as well as Adult Protective Services upon the patien t's absence. DISPOSITION: Stable. DISCHARGE INSTRUCTIONS: Discharge instructions were unable to be provided to the patient as he left the hospital against medical advice without signing an AMA form.
--- NOTE | 2017-12-19 10:14 | EKG ---
Test Reason : Blood Pressure : / mmHG Vent. Rate : 075 BPM Atrial Rate : 075 BPM P-R Int : 126 ms QRS Dur : 082 ms QT Int : 490 ms P-R-T Axes : 068 -04 032 degrees QTc Int : 547 ms Sinus rhythm with sinus arrhythmia with occasional Premature ventricular complexes Nonspecific T wave abnormality Prolonged QT Abnormal ECG Confirmed by LOIDA MALIN M.D. ([id number]), editor at large JESUS JARRETT ([id number]) on 12/19/2017 10:13:49 AM Referred By: Confirmed By:LOIDA MALIN M.D.
== END 2017-12-16 07:50 | disposition left against medical advice (07) | DRG 557 ==
LOC: ERS 15:40 → ONC 18:30 → OBSVTOIN 18:30
PROVIDERS: ADMIT Student in an Organized Health Care Education/Training Program; ATTEND Student in an Organized Health Care Education/Training Program
DX: M62.82 Rhabdomyolysis (principal); K72.00 Acute and subacute hepatic failure without coma; N18.4 Chronic kidney disease, stage 4 (severe); N17.9 Acute kidney failure, unspecified; E87.2 Acidosis; C78.89 Secondary malignant neoplasm of other digestive organs; C24.1 Malignant neoplasm of ampulla of Vater; I12.9 Hypertensive chronic kidney disease with stage 1 through stage 4 chronic kidney disease, or unspecified chronic kidney disease; E78.00 Pure hypercholesterolemia, unspecified; Z86.73 Personal history of transient ischemic attack (TIA), and cerebral infarction without residual deficits; E86.0 Dehydration; Z66 Do not resuscitate; N40.0 Benign prostatic hyperplasia without lower urinary tract symptoms; R74.0 Nonspecific elevation of levels of transaminase and lactic acid dehydrogenase [LDH]; F03.90 Unspecified dementia, unspecified severity, without behavioral disturbance, psychotic disturbance, mood disturbance, and anxiety; D64.9 Anemia, unspecified; Z53.21 Procedure and treatment not carried out due to patient leaving prior to being seen by health care provider; L89.152 Pressure ulcer of sacral region, stage 2; L89.301 Pressure ulcer of unspecified buttock, stage 1
CPT/HCPCS: 36415; 71045; 80048; 80053; 81003; 81015; 82550; 82553; 84484; 85025; 93005; 96360; 96361; G8978-GP-CL; G8979-GP-CJ; G8987-GO-CL; G8988-GO-CJ; J1630; J1940; J2270

== ENCOUNTER 2018-04-14 02:11 | Emergency (ER) | payer MEDICARE ==
[2018-04-14 02:45] LABS: #Eosinphils 0.4 thou/uL (0.0-0.7); #Monocytes 0.5 thou/uL (0.11-0.59); #Neutrophils 4.7 thou/uL (1.40-6.50); %Basophils 0.4 % (0.0-1.0); %Eosinophils 5.1 % (0.0-10.0); %Lymphocytes 26.8 % (21.0-51.0); %Monocytes 6.1 % (0.0-10.0); %Neutrophils 61.7 % (42.0-75.0); Hemoglobin 10.9 g/dL (14.0-18.0); Mean Corpuscular HGB CONC 32.3 g/dL (32.0-36.0); Mean Corpuscular Hemoglobin 31.1 pg (27.0-31.0); Mean Corpuscular Volume 96.2 fL (78.0-98.0); Mean Platelet Volume 7.6 fL (7.4-10.4); Platelet Count 173 thou/uL (130-400); RBC Distribution Width 13.2 % (11.5-14.5); Red Blood Cell (RBC) Count 3.49 mill/uL (4.70-6.10); White Blood Cell (WBC) Count 7.6 thou/uL (4.8-10.8)
[2018-04-14 03:05] LABS: ALT (SGPT) 10 U/L (8-55); AST (SGOT) 19 U/L (5-34); Albumin 3.6 g/dL (3.4-4.8); Alkaline Phosphatase 69 U/L (40-150); Anion Gap 10 mmol/L (10-20); BUN (Urea Nitrogen) 24 mg/dL (8.4-25.7); Bilirubin, Total 0.4 mg/dL (0.2-1.2); Calc. Creatinine Clearance 0 mL/min (70-130); Calcium 11.3 mg/dL (7.8-10.44); Carbon Dioxide 23 mmol/L (23-31); Chloride 109 mmol/L (98-107); Estimated GFR-MDRD 33; Globulin 3.3 g/dL (2.4-3.5); Glucose 124 mg/dL (83-110); Potassium 4.2 mmol/L (3.5-5.1); Protein, Total 6.9 g/dL (5.8-8.1); Sodium 138 mmol/L (136-145)
[2018-04-14] MEDS ORDERED: Lidocaine 1% w/Epinephrine 1:100K 20 ML VIAL ONE (03:15)
[2018-04-14] MEDS ORDERED: Adacel (T-DAP) 0.5 ML SYRINGE ONE (05:23)
--- NOTE | 2018-04-14 08:12 | RAD ---
SINGLE VIEW CHEST: HISTORY: Fall with lacerations. COMPARISON: 12/07/2017 FINDINGS: A single view of the chest shows a normal sized cardiomediastinal silhouette with atherosclerotic lang cifications in the aorta. There is no evidence of consolidation, mass, or pleural effusion. Increas ed interstitial markings are seen. IMPRESSION: No evidence of acute cardiopulmonary disease. POS: [facility]
--- NOTE | 2018-04-14 09:20 | CT ---
PRELIMINARY REPORT/[facility]/EMERGENTY AFTER-HOURS PROCEDURE CT Cervical Spine Without Contrast EXAM DATE/TIME: 04/14/2018 2:45 AM CLINICAL HISTORY: 87 years old, male; Injury or trauma; Fall; Initial encounter; Blunt trauma; Patient HX: M87 presents to ed via ems for bleeding lacerations to left cheek, above left eye, and nose S/P fall. Ems reports that PT arrived to the fire station with the lacerations. Pt's was in the emergency room today, was sent home via ems 15 minutes prior to patient arrival - PT states that he went to the fire stati on to arrange a ride to get his home. Denies neck pain, back pain. PT has been alert the entire time but is rambling - unsure patient baseline status. PT does not recall what caused him to fall TECHNIQUE: Axial computed tomography images of the cervical spine without intravenous contrast. COMPARISON: No relevant prior studies available. FINDINGS: Vertebrae: No fracture. Discs/Spinal canal/Neural foramina: No spinal stenosis. No neural foraminal narrowing. Soft tissues: Unremarkable. Thyroid: 2 cm left lobe thyroid nodule. Lungs: Lung apices are normal. IMPRESSION: 1. 2 cm left lobe thyroid nodule. 2. No fracture. Thank you for allowing us to participate in the care of your patient. Dictated and Authenticated by: Toño Quigley MD 04/14/2018 3:22 AM Central Time ([place] & [place]) FINAL REPORT EMERGENT AFTER HOURS CT CERVICAL SPINE WITHOUT CONTRAST: FINDINGS/IMPRESSION: I agree with the findings and impression given in the preliminary report, per the [facility] physician: 1. Degenerative changes of the cervical spine without acute osseous abnormality. 2. There are thyroid nodules. A nonemergent outpatient thyroid ultrasound is recommended for furthe r evaluation. POS: [facility]
--- NOTE | 2018-04-14 09:23 | CT ---
PRELIMINARY REPORT/[facility]/EMERGENTY AFTER-HOURS PROCEDURE CT Head Without Contrast EXAM DATE/TIME: 04/14/2018 2:45 AM CLINICAL HISTORY: 87 years old, male; Injury or trauma; Fall; Initial encounter; Blunt trauma (contusions or hematomas) ; Consciousness not specified; Patient HX: MLuke presents to ed via ems for bleeding lacerations to lef t cheek, above left eye, and nose S/P fall. Ems reports that PT arrived to the fire station with the lacerations. Pt's was in the emergency room today, was sent home via ems 15 minutes prior to pat ient arrival - PT states that he went to the fire station to arrange a ride to get his home. Den ies neck pain, back pain. PT has been alert the entire time but is rambling - unsure patient baseline status. PT does not recall what caused him to fall TECHNIQUE: Axial computed tomography images of the head/brain without contrast. COMPARISON: No relevant prior studies available. FINDINGS: Brain: Multifocal encephalomalacia/gliosis. Volume loss and chronic small vessel ischemic change. No brain edema. No intracranial hemorrhage. Ventricles: Normal. No ventriculomegaly. Bones/joints: Acute bilateral nasal bone fractures. Sinuses: Visualized sinuses are unremarkable. No acute sinusitis. Mastoid air cells: Visualized mastoid air cells are unremarkable. No mastoid effusion. Soft tissues: Frontal scalp hematoma. IMPRESSION: 1. Acute bilateral nasal bone fractures. 2. No acute brain findings. Thank you for allowing us to participate in the care of your patient. Dictated and Authenticated by: Toño Quigley MD 04/14/2018 3:19 AM Central Time ([place] & [place]) FINAL REPORT CT BRAIN WITHOUT CONTRAST: Comparison: 01-28-17 FINDINGS/IMPRESSION: I agree with the findings and impression given in the preliminary report by AD physician. 1. No evidence of acute intracranial abnormality. 2. Remote encephalomalacia in the left MCA distribution. POS: [facility]
--- NOTE | 2018-04-14 09:25 | CT ---
PRELIMINARY REPORT/[facility]/EMERGENTY AFTER-HOURS PROCEDURE CT Maxillofacial Without Contrast EXAM DATE/TIME: 04/14/2018 2:45 AM CLINICAL HISTORY: 87 years old, male; Injury or trauma; Fall; Initial encounter; Blunt trauma (contusions or hematomas) ; Nose; Patient HX: MLuke presents to ed via ems for bleeding lacerations to left cheek, above left eye , and nose S/P fall. Ems reports that PT arrived to the fire station with the lacerations. Pt's was in the emergency room today, was sent home via ems 15 minutes prior to patient arrival - PT state s that he went to the fire station to arrange a ride to get his home. Denies neck pain, back camilo n. PT has been alert the entire time but is rambling - unsure patient baseline status. PT does not re call what caused him to fall TECHNIQUE: Axial computed tomography images of the face without intravenous contrast. COMPARISON: No relevant prior studies available. FINDINGS: Orbits: No acute intraorbital abnormality. Globes are unremarkable. Sinuses: Normal. No air-fluid levels. Bones/joints: Acute displaced bilateral nasal bone fractures. Remaining facial bones intact. Nasal cavity: Nasal contusions. Soft tissues: Frontal scalp hematoma. IMPRESSION: Acute displaced bilateral nasal bone fractures. Thank you for allowing us to participate in the care of your patient. Dictated and Authenticated by: Toño Quigley MD 04/14/2018 3:35 AM Central Time ([place] & [place]) FINAL REPORT CT FACE NONCONTRAST: Date: 04-14-18 Performed on emergency basis at 0247 hours. History: Fall, facial injury. FINDINGS: I agree with the preliminary report by Dr. Quigley from [facility]. Mildly displaced nasal bon e fractures with overlying swelling and laceration. Left frontal scalp swelling and hematoma partiall y visualized. Code QA POS: [facility]
== END 2018-04-14 04:41 | disposition home or self-care (01) ==
LOC: ERS 02:11
DX: S02.2XXA Fracture of nasal bones, initial encounter for closed fracture (principal); S01.112A Laceration without foreign body of left eyelid and periocular area, initial encounter; E78.5 Hyperlipidemia, unspecified; Z86.73 Personal history of transient ischemic attack (TIA), and cerebral infarction without residual deficits; Z79.82 Long term (current) use of aspirin; Z79.899 Other long term (current) drug therapy; W19.XXXA Unspecified fall, initial encounter
CPT/HCPCS: 12015; 36415; 70450; 70486; 71045; 72125; 80053; 84484; 85025; 90715; 93005; J2001

== ENCOUNTER 2018-05-08 10:45 | Emergency (ER) | payer MEDICARE ==
[2018-05-08] MEDS ORDERED: Bacitracin Zinc 1 Packet ONE (11:24)
== END 2018-05-08 11:28 | disposition home or self-care (01) ==
LOC: ERS 10:45
DX: S01.21XD Laceration without foreign body of nose, subsequent encounter (principal); S01.112D Laceration without foreign body of left eyelid and periocular area, subsequent encounter; E78.5 Hyperlipidemia, unspecified; I10 Essential (primary) hypertension; Z86.73 Personal history of transient ischemic attack (TIA), and cerebral infarction without residual deficits